=== PATIENT | female | born 1950 | race Caucasian/White ===

== ENCOUNTER → 2016-10-20 | Outpatient (CLI) | payer OTHER ==
[~2016-10-20] MED LIST: ACET-1311 PO; AMLO-110 PO; CLC100 PO; DRV100 PO; FERR1TAB61 PO; HYDC25 PO; LEVO75TA36 PO; LEVO88TA3 PO; LISI-461 PO; LOVA20TA4 PO; LSN20 PO; METF-384 PO; OXYC-57 PO; SIMV10TA2 PO
[2016-10-20 17:29] LABS: URINE APPEARANCE CLEAR (CLEAR); URINE BILIRUBIN NEG (NEG); URINE COLOR YELLOW; URINE EPITHELIAL CELL AUTO >30 /lpf (0-5); URINE NITRITE NEG (NEG); URINE PH 5.5 (4.5-7.5); URINE SPECIFIC GRAVITY 1.007 (1.000-1.030); UROBILINOGEN NEG (NEG)
[2016-10-20 17:40] LABS: MANUAL MICROSCOPIC REQUIRED? NO; REVIEW REQ? NO
[2016-10-20 18:05] LABS: BASO % 0.6 %; BASO ABS # 0.06 K/uL (0-0.2); COMPLETE YES; EOS % 1.3 %; HEMATOCRIT 31.3 % (37-47); IG% 0.1 %; LYMPH % 24.9 %; LYMPH ABS # 2.47 K/uL (1.2-3.4); MEAN CELL VOLUME 82.8 fL (80-100); MEAN CORPUSCULAR HEMOGLOBIN 26.5 pg (25-34); MEAN CORPUSCULAR HGB CONC 31.9 g/dl (32-36); MEAN PLATELET VOLUME 11.2 fL (7.4-10.4); NEUT % 66.1 %; PLATELET COUNT 308 K/uL (130-400); RED BLOOD COUNT 3.78 M/uL (4.2-5.4); WHITE BLOOD COUNT 9.91 K/uL (4.8-10.8)
[2016-10-20 18:38] LABS: ALT/SGPT 13 U/L (12-78); BLOOD UREA NITROGEN 14 mg/dl (7-18); BUN/CREATININE RATIO 13.7 (10-20); CALCIUM 9.5 mg/dl (8.5-10.1); CARBON DIOXIDE 23 mmol/L (21-32); CHLORIDE 106 mmol/L (98-107); GLUCOSE 122 mg/dl (70-99); POTASSIUM 4.5 mmol/L (3.5-5.1); SODIUM 142 mmol/L (136-145)
[2016-10-20 18:48] LABS: ALB/GLOB RATIO 0.9 (0.9-2); ALKALINE PHOSPHATASE 85 U/L (45-117); AST/SGOT 10 U/L (15-37)
[2016-10-21 06:22] LABS: ESTIMATED AVERAGE GLUCOSE 160 mg/dl; HA1C FLAG Normal (Normal)
== END | disposition home or self-care (01) ==
LOC: C.LABBFT 12:11
PROVIDERS: ATTEND Internal Medicine
DX: E03.9 Hypothyroidism, unspecified (principal); E11.65 Type 2 diabetes mellitus with hyperglycemia; R79.9 Abnormal finding of blood chemistry, unspecified

== ENCOUNTER → 2016-10-25 | Outpatient (CLI) | payer OTHER | END | disposition home or self-care (01) | LOC: C.LABSPEC 10:30 | PROVIDERS: ATTEND Internal Medicine | DX: Z12.11 Encounter for screening for malignant neoplasm of colon (principal) ==

== ENCOUNTER → 2016-12-26 | Outpatient (CLI) | payer OTHER ==
[~2016-12-26] MED LIST changes: +OPTIRAY 320 IV PRN
--- NOTE | 2016-12-26 12:11 | DIAGNOSTIC IMAGING REPORT ---
CAROTID ARTERY ULTRASOUND CLINICAL HISTORY: Carotid bruit. COMPARISON STUDY: None. TECHNIQUE: Real-time, grayscale, and color Doppler sonography of the carotid and vertebral arteries was performed. Images were viewed in the transverse and longitudinal planes. FINDINGS: There is extensive atherosclerotic plaque. Velocity measurements are listed below. COMMON CAROTID PEAK SYSTOLIC VELOCITY (CM/S): RIGHT 60 LEFT 67 ICA PEAK SYSTOLIC VELOCITY (CM/S): RIGHT 445 LEFT 249 The systolic ratio between the right internal to common carotid artery is markedly elevated at 7.4. The systolic ratio between the left internal carotid artery to common carotid artery is elevated at 3.7. Antegrade flow is seen in the vertebral arteries. The external carotid arteries are patent. Blood pressure in the right arm measured 124/64. Blood pressure in the left arm measured 125/73. IMPRESSION: 1. Markedly elevated velocities within the proximal to mid right internal carotid artery suggestive of a severe stenosis. A CTA of the neck could be obtained for further evaluation. 2. Findings suggestive of greater than 70% stenosis of the proximal left internal carotid artery. Electronically signed by: Mahesh Grayson M.D. 12/26/2016 12:09 PM Dictated Date/Time: 12/26/2016 12:04 PM
--- NOTE | 2016-12-26 16:42 | DIAGNOSTIC IMAGING REPORT ---
CT ANGIOGRAM OF THE NECK CLINICAL HISTORY: Carotid stenosis. COMPARISON STUDY: Carotid artery ultrasound dated 12/26/2016. TECHNIQUE: Following the IV administration of 120 of Optiray 320, CT angiogram of the neck was performed from the aortic arch to the skull base. Images are reviewed in the axial, sagittal, and coronal planes. 3-D MIPS images are created and assessed. IV contrast was administered without complication. All measurements were calculated based on NASCET criteria. CT DOSE: 501.39 mGy.cm FINDINGS: Thoracic aorta: Visualized portions of the thoracic aorta are normal in caliber. The aortic arch demonstrates bovine variant anatomy. Subclavian arteries: Widely patent bilaterally. Right carotid arterial system: The right common carotid artery is widely patent. There is near complete occlusion on the trace flow identified within the proximal right internal carotid artery. This extends approximately 1 cm in length as seen on axial image #196. The remainder of the right internal carotid artery and the right external carotid artery are widely patent. Left carotid arterial system: The left common carotid artery is widely patent. There is approximately 70% stenosis identified in the proximal right internal carotid artery. The remainder of the right internal carotid artery and the right external carotid artery are widely patent. Vertebral arteries: The vertebral arteries are widely patent and codominant. Intracranial vasculature: Partially visualized intracranial vessels at the skull base appear clear. Jugular veins: Widely patent bilaterally. Brain parenchyma: The visualized brain parenchyma the skull base is within normal limits. Lung apices: Emphysema is noted in the upper lobes. Partially visualized upper lobe lung parenchyma is otherwise clear. Soft tissues: The visualized pharyngeal soft tissues are normal in appearance noting angiographic phase technique. The oropharyngeal airway appears widely patent. The salivary and thyroid glands are normal in appearance. No cervical lymphadenopathy is seen. Skeletal structures: The skeletal structures are osteopenic. The visualized calvarium at the skull base appears intact. There is multilevel cervical spondylosis. IMPRESSION: 1. There is near complete occlusion with only trace flow seen in the proximal right internal carotid artery. 2. There is approximately 70% stenosis of the proximal left internal carotid artery. 3. The vertebral arteries are widely patent. 4. Emphysema. Electronically signed by: Js Britt M.D. 12/26/2016 4:40 PM Dictated Date/Time: 12/26/2016 4:25 PM
== END | disposition home or self-care (01) ==
LOC: C.ULTR 11:08
PROVIDERS: ATTEND Physician Assistant Medical
DX: Z01.810 Encounter for preprocedural cardiovascular examination (principal); Z01.812 Encounter for preprocedural laboratory examination; I65.23 Occlusion and stenosis of bilateral carotid arteries; J43.9 Emphysema, unspecified; R94.31 Abnormal electrocardiogram [ECG] [EKG]

== ENCOUNTER → 2016-12-28 | Outpatient (CLI) | payer OTHER ==
[~2016-12-28] MED LIST changes: -DRV100 PO; -HYDC25 PO; -LEVO75TA36 PO; -LISI-461 PO; -OPTIRAY 320 IV PRN; -SIMV10TA2 PO
== END | disposition home or self-care (01) ==
LOC: C.LABBFT 14:13
PROVIDERS: ATTEND Physician Assistant Medical
DX: E11.65 Type 2 diabetes mellitus with hyperglycemia (principal)

== ENCOUNTER 2017-01-17 05:13 | Inpatient (IN) | payer OTHER ==
[2017-01-09 15:58] VITALS: BMI 41.0
[2017-01-17] VITALS (38 sets, daily range): BP systolic 94–159; BP diastolic 42–90; PULSE 49–85; TEMP 36.3–36.6; O2SAT 90–100; Ht 162.6 cm; Wt 113.0 kg
[~2017-01-17] VITALS: Ht 162.6 cm; Wt 113.0 kg
[~2017-01-17 05:13] MED LIST changes: -ACET-1311 PO; -CLC100 PO; -OXYC-57 PO
--- NOTE | 2017-01-17 05:54 | History and Physical ---
History & Physical Date of Service January 17, 2017. History & Physical CC: Right internal carotid artery stenosis HPI: Mrs. Douglas is a 66-year-old female in her usual health was found to have a colon cancer. She was to undergo a colectomy when she was found to have a carotid bruit. Her CTA showed a severe pre-occlusive lesion of her right internal carotid artery approximately 1 cm above the bifurcation. She is asymptomatic from carotid disease at this time. She also denies any heart problems. She also denies any claudication of her lower extremities. ALLERGIES: POSITIVE FOR PENICILLIN. MEDICATIONS: Amlodipine, iron, levothyroxine, lisinopril, lovastatin, and metformin. PAST MEDICAL HISTORY: Positive for high blood pressure, diabetes, and cancer, and we found carotid stenosis. PAST SURGICAL HISTORY: Include cholecystectomy, stomach surgery, knees and back surgery in the past. FAMILY HISTORY: Positive for heart disease, hypertension, diabetes, cancer and stroke. SOCIAL HISTORY: She drinks occasionally but not often. She has never smoked. REVIEW OF SYSTEMS: A 10-review of systems review was obtained. Only positive findings are heartburn and occasional blood in stool. PHYSICAL EXAMINATION: The patient is awake, oriented x3. She is in no apparent distress. She is mildly obese. Her blood pressure is 132/64 in the right, 130/70 in the left arm. Head and neck within normal limits. There is a right carotid bruit. The lungs are clear. Heart, regular rhythm. Abdominal exam is benign. Vascular exam: Radials, carotids, supratemporal arteries +2 bilaterally. Femorals are +2 bilaterally. Neurologic exam grossly intact. CT again shows a severe preocclusive right internal carotid artery stenosis. IMPRESSION: Right internal carotid artery stenosis. Colon cancer. PLAN AND RECOMMENDATIONS: Patient is admitted for a right carotid endarterectomy. I have discussed the risks options and benefits of the procedure with the patient. The patient understands the risks options and benefits and agrees to the procedure.
[2017-01-17] MEDS ORDERED: LACTATED RINGER'S 1000ML 1,000 ML IV SCH ×2 (06:00)
[2017-01-17] MEDS ORDERED: CLINDAMYCIN 600 MG/54 ML D5W IV SCH (06:00)
[2017-01-17] MEDS ORDERED: FENTANYL CITRATE INJ 50 MCG/1 ML 2 ML VIAL ONE ×2 (06:39→08:15)
[2017-01-17] MEDS ORDERED: MIDAZOLAM HCL 1 MG/ML 2ML VIAL ONE (06:39)
--- NOTE | 2017-01-17 07:01 | History & Physical Bridge Note ---
H&P Re-Evaluation Bridge Note: I have examined the patient, reviewed the History & Physical and in the interval since the performance of the History & Physical I have noted the following changes of clinical significance: No changes noted
[2017-01-17] MEDS ORDERED: THROMBIN FOR SOLN 20000 UNIT KIT ONE (07:07)
[2017-01-17] MEDS ORDERED: GELATIN SPONGE 12-7MM ONE ×2 (07:07→09:58)
[2017-01-17] MEDS ORDERED: BUPIVACAINE/EPINEPHRINE 0.5% MPF 1:200,000 30 ML VIAL ONE (07:07)
[2017-01-17] MEDS ORDERED: CEFAZOLIN SOD 1 GM VIAL ONE (07:08)
[2017-01-17] MEDS ORDERED: LIDOCAINE HCL 1% 20 ML VIAL ONE (07:08)
[2017-01-17] MEDS: HEPARIN SOD (PORCINE) 1000 UNIT/ML 10 ML VIAL ONE ×2 (08:25→09:38)
[2017-01-17] MEDS ORDERED: DEXAMETHASONE SOD INJ 4 MG/ML VIAL ONE (09:10)
[2017-01-17] MEDS ORDERED: EpHEDrine SULFATE 50MG/5ML SYR ONE (09:10)
[2017-01-17] MEDS ORDERED: NEOSTIGMINE METHYLSULFATE 5 MG/5 ML SYR ONE (09:10)
[2017-01-17] MEDS ORDERED: HEPARIN SOD (PORCINE) 1000 UNIT/ML 10 ML VIAL ONE (09:10)
[2017-01-17] MEDS ORDERED: PROPOFOL IV EMULSION 10 MG/ML 20 ML VIAL IV ONE (09:10)
[2017-01-17] MEDS ORDERED: CISATRACURIUM BESYLATE IV SOLN 2 MG/ML 10 ML VIAL ONE (09:10)
[2017-01-17] MEDS ORDERED: GLYCOPYRROLATE INJ 0.2 MG/ML VIAL ONE (09:10)
[2017-01-17] MEDS ORDERED: LIDOCAINE HCL 2% 2 ML VIAL (20MG/ML) ONE (09:10)
[2017-01-17] MEDS ORDERED: ONDANSETRON INJ 2 MG/ML 2 ML VIAL ONE ×2 (09:10→13:34)
[2017-01-17] MEDS ORDERED: PHENYLEPHRINE HCL INJ 10 MG/ML VIAL ONE (09:11)
[2017-01-17] MEDS ORDERED: NITROGLYCERIN/D5W 100 MCG/ML 250 ML IV PRN (09:37)
[2017-01-17] MEDS ORDERED: PHENYLEPHRINE HCL INJ 20 MG in DEXTROSE 5% 500ML 500 ML IV PRN (09:37)
[2017-01-17] MEDS ORDERED: SODIUM NITROPRUSSIDE SOLN INJ 50 MG in DEXTROSE 5% 500ML 500 ML IV PRN (09:37)
--- NOTE | 2017-01-17 09:37 | [facility] Post Operative Brief Note ---
Immediate Operative Summary Operative Date January 17, 2017. Pre-Operative Diagnosis Internal Right Carotid Artery Stenosis Post-Operative Diagnosis Internal Right Carotid Artery Stenosis Procedure(s) Performed Right Carotid Endarterectomy with patch Surgeon Dr Valdez Morley Assembler Brazer Surgeon(s) Kristel Thurston PA-C, Fabiola Wang-Fellow Estimated Blood Loss 180ml Findings severe stenosis of right ica just beyond the origin Specimens A: Right Carotid Plaque Anesthesia Gen Complication(s) None Disposition Recovery Room / PACU
[2017-01-17] MEDS ORDERED: DEXTROSE 50% 50 ML SYR IV PRN (09:45)
[2017-01-17] MEDS ORDERED: GLUCOSE 10 TABS/TUBE PO PRN (09:45)
[2017-01-17] MEDS ORDERED: METOPROLOL TARTRATE 1 MG/ML VIAL IV PRN (09:45)
[2017-01-17] MEDS ORDERED: GLUCOSE 40% GEL 15 GM TUBE PO PRN (09:45)
[2017-01-17] MEDS ORDERED: GLUCAGON FOR INJ 1 MG VIAL SQ PRN (09:45)
[2017-01-17] MEDS ORDERED: SURGICEL ABSORB HEMOSTAT 2IN X 14IN TOP ONE (09:46)
[2017-01-17] MEDS ORDERED: NITROGLYCERIN/D5W 100 MCG/ML BTL ONE (10:04)
[2017-01-17] MEDS ORDERED: NALOXONE HCL 0.4 MG/1 ML VIAL/CARP IV PRN (11:00)
[2017-01-17] MEDS ORDERED: LABETALOL HCL IV 5 MG/ML 20ML IV PRN (11:00)
[2017-01-17] MEDS ORDERED: ONDANSETRON INJ 2 MG/ML 2 ML VIAL IV PRN (11:00)
[2017-01-17] MEDS ORDERED: PROMETHAZINE HCL INJ 12.5 MG in SODIUM CHLORIDE 0.9% 50ML 50 ML IV PRN (11:00)
[2017-01-17] MEDS ORDERED: FLUMAZENIL 0.1 MG/1 ML 10 ML VIAL IV PRN (11:00)
[2017-01-17] MEDS ORDERED: FENTANYL CITRATE INJ 50 MCG/1 ML 2 ML VIAL IV PRN (11:00)
[2017-01-17] MEDS ORDERED: ATROPINE SULFATE 0.1 MG/ML 5ML SYR IV PRN (11:00)
[2017-01-17] MEDS ORDERED: EpHEDrine SULFATE INJ 50 MG/ML AMP IV PRN (11:00)
--- NOTE | 2017-01-17 11:15 | Anesthesiology Progress Note ---
Anesthesia Post Op Note Date & Time January 17, 2017 at 11:15 Vital Signs Pain Intensity: 0 Vital Signs Past 12 Hours Date Time Temp Pulse Resp B/P Pulse Ox O2 Delivery O2 Flow Rate FiO2 01/17/17 11:10 66 16 108/57 95 Nasal Cannula 3 01/17/17 11:00 70 16 112/56 100 Mask 10 01/17/17 10:50 71 16 120/59 99 Mask 10 01/17/17 10:44 36.8 73 16 130/63 97 Mask 10 01/17/17 05:50 36.4 85 20 159/90 98 Room Air Notes Mental Status: alert / awake / arousable, participated in evaluation Pt Amnestic to Procedure: Yes Nausea / Vomiting: adequately controlled Pain: adequately controlled Airway Patency, RR, SpO2: stable & adequate BP & HR: stable & adequate Hydration State: stable & adequate Anesthetic Complications: no major complications apparent
[2017-01-17] MEDS: OXYCODONE/ACETAMINOPHEN 5-325 TAB PO PRN ×2 (12:11→23:12)
[2017-01-17 15:04] LABS: HEMATOCRIT 25.1 % (37-47); MEAN CORPUSCULAR HEMOGLOBIN 26.1 pg (25-34); MEAN CORPUSCULAR HGB CONC 32.3 g/dl (32-36); MEAN PLATELET VOLUME 9.9 fL (7.4-10.4); PLATELET COUNT 265 K/uL (130-400); WHITE BLOOD COUNT 10.57 K/uL (4.8-10.8)
[2017-01-17 15:20] LABS: PARTIAL THROMBOPLASTIN RATIO 0.9; PROTHROMBIN TIME (PATIENT) 10.6 SECONDS (9.0-12.0)
[2017-01-17 15:23] LABS: CREATININE 1.2 mg/dl (0.60-1.20)
[2017-01-17] MEDS: D5W AND 1/2NSS 1,000 ML IV SCH ×2 (15:40→23:11)
[2017-01-17] MEDS: CLINDAMYCIN IV 600 MG in DEXTROSE 5% ADD-VANTAGE 50ML 50 ML IV SCH ×2 (15:40→23:12)
--- NOTE | 2017-01-17 16:35 | CRITICAL CARE CONSULTATION ---
DATE OF CONSULTATION: 01/17/2017 CHIEF COMPLAINT: Nausea and vomiting. HISTORY OF PRESENT ILLNESS: The patient is a 66-year-old woman who underwent colonoscopy secondary to guaiac positive stool and according to her family, was found to have a colon cancer. I do not see any records in [facility] to give more details. She was seen for her preoperative clearance and workup and found to have a right carotid bruit. She underwent a carotid artery ultrasound on December 26 showing elevated velocities within the proximal to mid right internal carotid artery suggestive of severe stenosis. She then underwent CT angiogram of the neck, showing near complete occlusion with only trace flow seen in the proximal right internal carotid artery. She was asymptomatic and was seen by Dr. Morley for right carotid endarterectomy. She underwent her surgery today and was brought to the intensive care unit from the PACU. There was no communication from the surgery service or anesthesia service regarding this patient. It appears that she had no intraoperative complications and received 600 mL of lactated Ringer's. Estimated blood loss was 180 mL and no urine output. Postop, she is nauseated after eating a full lung and she vomited in my presence. She denies pain. She denies numbness, tingling, weakness, difficulty speaking or swallowing. PAST MEDICAL HISTORY: Gout, diabetes mellitus type 2, gastroesophageal reflux disease, hypercholesterolemia, hypertension, hypothyroidism, migraine headache, urinary tract infection and postmenopausal bleeding. PAST SURGICAL HISTORY: Status post cholecystectomy, lumbar vertebral fusion, small bowel resection, bilateral total knee arthroplasties and tubal ligation. ALLERGIES: PENICILLIN, LATEX, MAGNESIUM, OXYCODONE AND ZINC. OUTPATIENT MEDICATIONS: Amlodipine 5 mg daily, ferrous sulfate 65 mg in the morning, levothyroxine 1 tab p.o. q.a.m., lisinopril 1 tab daily, lovastatin 20 mg every evening, and metformin 1 gram b.i.d. SOCIAL HISTORY: The patient is and her 4 years ago. She drinks alcohol socially and has never smoked. FAMILY HISTORY: Significant for heart disease, hypertension, diabetes mellitus, and cancer. REVIEW OF SYSTEMS: She has felt weak and tired. She denies any numbness, tingling, weakness, falls, syncope, or presyncope. Additional review of systems are negative or noncontributory in 12-point system. PHYSICAL EXAMINATION: GENERAL: This is an obese woman, sitting in bed in no distress. VITAL SIGNS: Temperature is pending, heart rate 84, respiratory rate 22, blood pressure 136/77, and oxygen saturation 99% on 3 liters nasal cannula. HEENT: Pupils are equally round and reactive to light. There is no scleral icterus. Oral mucosa is moist. Tongue is midline. There is no facial droop. NECK: Shows the carotid endarterectomy incision on the right to be well approximated and without any drainage. LUNGS: Have decreased breath sounds in the bases. No rales, rhonchi or wheezes. HEART: Regular rate and rhythm. ABDOMEN: Limited due to the patient's nausea and her positioning in the bed. It is somewhat firm, but nontender and nondistended. EXTREMITIES: Warm. NEUROLOGIC: Pupils are equally round and reactive to light. No facial droop. Tongue midline. Sensation of the face is grossly intact and equal bilaterally. Voice is within normal limits. UPPER EXTREMITIES: Strength is equal bilaterally. LABORATORY DATA: White blood cell count 10.57, hemoglobin 8.1, hematocrit 25.8, and platelets 265. PT, PTT, and INR within normal limits. Blood sugar 260. Creatinine pending. MEDICATIONS: Postoperatively, Norvasc 5 mg daily, clindamycin q. 8 hours, Lovenox 30 mg subQ q. 12 hours, Fentanyl p.r.n., ferrous sulfate daily, insulin sliding scale, labetalol as needed, lactated Ringer's 80 mL per hour, Synthroid 88 mcg daily, lisinopril 20 mg daily, lovastatin 20 mg q.p.m., Lopressor 5 mg p.r.n., Zofran, p.r.n. nitroglycerin infusion, oxycodone/acetaminophen, Shahid-Synephrine p.r.n., promethazine p.r.n. and Nipride p.r.n. IMPRESSION: 1. Status post right carotid endarterectomy, doing well. 2. Postoperative nausea and vomiting, which may be secondary to lingering anesthesia. She also had a large lunch soon after she arrived in the intensive care unit. 3. History of hypertension, presently well controlled. She has a myriad of p.r.n. medications on her MAR should she become hypertensive. 4. Diabetes mellitus with hyperglycemia, she is on an insulin sliding scale. 5. Anemia without active signs of bleeding. Her preoperative hemoglobin was 9.2. Family tells me that she is anemic secondary to her colon cancer. 6. Colon cancer, waiting for hemicolectomy by Dr. Weathers. PLAN: 1. Follow blood pressure and treat if not within Dr. Morley's parameters. 2. Suggest Tylenol for pain. 3. Continue neurovascular checks. Please call me with any questions or concerns. Dr. Morley should be the first call on this patient. [facility]
[2017-01-17] MEDS: INSULIN HUMAN REGULAR SC SCH ×2 (16:48→20:42)
[2017-01-17] MEDS: ENOXAPARIN 30 MG/0.3 ML SYR SQ SCH (18:07)
[2017-01-17] MEDS ORDERED: NURSING DECISION MEDICATION ORDER SCH (19:45)
[2017-01-17] MEDS ORDERED: COUGH DROP (SUGAR FREE) LOZ 24 LOZ/1 BOX PO PRN (20:15)
[2017-01-17] MEDS: LOVASTATIN 20 MG TAB PO SCH (20:31)
[2017-01-17] MEDS: ONDANSETRON INJ 2 MG/ML 2 ML VIAL IV PRN (20:40)
[2017-01-18] VITALS (16 sets, daily range): BP systolic 96–143; BP diastolic 47–78; PULSE 44–64; TEMP 36.4–36.8; O2SAT 91–98
[2017-01-18] MEDS: D5W AND 1/2NSS 1,000 ML IV SCH ×2 (01:37→10:04)
[2017-01-18] MEDS: ENOXAPARIN 30 MG/0.3 ML SYR SQ SCH ×2 (05:46→19:33)
[2017-01-18] MEDS: LEVOTHYROXINE 88 MCG TAB PO SCH (05:46)
[2017-01-18] MEDS: OXYCODONE/ACETAMINOPHEN 5-325 TAB PO PRN ×4 (06:11→21:06)
[2017-01-18 06:18] LABS: HEMATOCRIT 29.6 % (37-47); MEAN CELL VOLUME 80.4 fL (80-100); MEAN CORPUSCULAR HGB CONC 31.1 g/dl (32-36); MEAN PLATELET VOLUME 9.9 fL (7.4-10.4); PLATELET COUNT 280 K/uL (130-400); RED BLOOD COUNT 3.68 M/uL (4.2-5.4); WHITE BLOOD COUNT 12.71 K/uL (4.8-10.8)
--- NOTE | 2017-01-18 07:42 | Anesthesiology Progress Note ---
Anesthesia Post Op Note Date & Time January 18, 2017 at 07:42 Vital Signs Pain Intensity: 2.0 Vital Signs Past 12 Hours Date Time Temp Pulse Resp B/P Pulse Ox O2 Delivery O2 Flow Rate FiO2 01/18/17 06:10 64 16 120/55 95 Room Air 01/18/17 04:00 97 Nasal Cannula 2.0 01/18/17 04:00 36.4 47 16 143/78 97 Nasal Cannula 2.0 01/18/17 02:00 53 14 100/47 95 01/18/17 00:00 94 Nasal Cannula 1.0 01/17/17 23:30 36.6 54 16 114/48 98 Room Air 127/61 01/17/17 22:15 49 14 105/45 100 Nasal Cannula 2.0 01/17/17 22:08 36.5 72 15 100/42 100 2.0 01/17/17 21:40 36.6 61 18 100/45 100 2.0 01/17/17 20:35 36.5 54 14 113/46 100 2.0 01/17/17 20:05 36.6 71 15 110/50 96 2.0 01/17/17 20:00 98 Nasal Cannula 2.0 01/17/17 19:50 36.5 61 16 117/55 99 Notes Mental Status: alert / awake / arousable, participated in evaluation Pt Amnestic to Procedure: Yes Nausea / Vomiting: adequately controlled Pain: adequately controlled Airway Patency, RR, SpO2: stable & adequate BP & HR: stable & adequate Hydration State: stable & adequate Anesthetic Complications: no major complications apparent
[2017-01-18] MEDS: FERROUS SULFATE 325 MG TAB PO SCH (07:59)
[2017-01-18] MEDS: LISINOPRIL 20 MG TAB PO SCH (07:59)
[2017-01-18] MEDS: AMLODIPINE BESYLATE 5 MG TAB PO SCH (07:59)
[2017-01-18] MEDS: INSULIN HUMAN REGULAR SC SCH ×4 (08:01→21:00)
--- NOTE | 2017-01-18 12:51 | Progress Note ---
Progress Note Date of Service: January 18, 2017. Subjective Patient feels weak and tired. Was nauseous yesterday Objective Vital Signs Vital Signs Past 12 Hours Date Time Temp Pulse Resp B/P Pulse Ox O2 Delivery O2 Flow Rate FiO2 01/18/17 10:15 48 16 113/54 96 Room Air 01/18/17 08:06 61 16 115/50 96 Room Air 01/18/17 08:00 Room Air 01/18/17 08:00 36.6 62 16 109/49 96 Room Air 01/18/17 07:30 57 14 124/61 98 Room Air 01/18/17 07:00 54 18 116/54 94 Room Air 01/18/17 06:10 64 16 120/55 95 Room Air 01/18/17 04:00 97 Nasal Cannula 2.0 01/18/17 04:00 36.4 47 16 143/78 97 Nasal Cannula 2.0 01/18/17 02:00 53 14 100/47 95 Exam Awake alert. VSS Incision dry and clean No neuro deficits. No swallowing difficulty Intake & Output 8-Hour Column 01/17/17 01/18/17 01/18/17 16:00 00:00 08:00 Intake Total 2094 ml 1526 ml 1094 ml Output Total 480 ml 950 ml 870 ml Balance 1614 ml 576 ml 224 ml 24-Hour Column 01/18/17 08:00 Intake Total 4714 ml Output Total 2300 ml Balance 2414 ml Laboratory and Microbiology Results Past 24 Hours Test 01/17/17 14:42 01/17/17 15:57 01/17/17 19:51 01/18/17 06:04 Range/Units White Blood Count 10.57 12.71 4.8-10.8 K/uL Red Blood Count 3.10 3.68 4.2-5.4 M/uL Hemoglobin 8.1 9.2 12.0-16.0 g/dL Hematocrit 25.1 29.6 37-47 % Mean Corpuscular Volume 81.0 80.4 80-100 fL Mean Corpuscular Hemoglobin 26.1 25.0 25-34 pg Mean Corpuscular Hemoglobin Concent 32.3 31.1 32-36 g/dl RDW Standard Deviation 44.2 42.3 36.4-46.3 fL RDW Coefficient of Variation 14.8 14.4 11.5-14.5 % Platelet Count 265 280 130-400 K/uL Mean Platelet Volume 9.9 9.9 7.4-10.4 fL Prothrombin Time 10.6 9.0-12.0 SECONDS Prothromb Time International Ratio 1.0 0.9-1.1 Activated Partial Thromboplast Time 22.6 21.0-31.0 SECONDS Partial Thromboplastin Ratio 0.9 Creatinine 1.20 0.60-1.20 mg/dl Est Creatinine Clear Calc Drug Dose 54.1 ml/min Estimated GFR () 53.8 Estimated GFR (Non- 46.4 Bedside Glucose 385 260 70-90 mg/dl Test 01/18/17 06:08 01/18/17 10:48 Range/Units Bedside Glucose 202 203 70-90 mg/dl Imp: Post right CEA Plan: Doing well with no neuro deficits. Will transfer to floor. Too tired from surgeryto be d/c today
[2017-01-18] MEDS: METFORMIN HCL 500 MG TAB PO SCH (19:34)
[2017-01-18] MEDS: LOVASTATIN 20 MG TAB PO SCH (21:06)
[2017-01-19] MEDS: OXYCODONE/ACETAMINOPHEN 5-325 TAB PO PRN (01:25)
[2017-01-19] MEDS: ENOXAPARIN 30 MG/0.3 ML SYR SQ SCH ×2 (05:31→18:27)
[2017-01-19] MEDS: LEVOTHYROXINE 88 MCG TAB PO SCH (05:31)
[2017-01-19] MEDS: ONDANSETRON INJ 2 MG/ML 2 ML VIAL IV PRN (05:35)
[2017-01-19 07:43] VITALS: BP 124/81; PULSE 64; TEMP 36.6; O2SAT 93
[2017-01-19] MEDS: METFORMIN HCL 500 MG TAB PO SCH ×2 (08:30→18:26)
[2017-01-19] MEDS: INSULIN HUMAN REGULAR SC SCH ×4 (08:45→21:00)
[2017-01-19] MEDS: FERROUS SULFATE 325 MG TAB PO SCH (08:53)
[2017-01-19] MEDS: LISINOPRIL 20 MG TAB PO SCH (08:55)
[2017-01-19] MEDS: AMLODIPINE BESYLATE 5 MG TAB PO SCH (08:56)
[2017-01-19] MEDS ORDERED: BISACODYL 10 MG SUPP PR STA (14:32)
[2017-01-19] MEDS ORDERED: DOCUSATE SODIUM 100 MG CAP PO ONE (14:32)
[2017-01-19] MEDS ORDERED: SODIUM CHLORIDE 0.9% 1000ML 1,000 ML IV SCH (14:45)
[2017-01-19] MEDS ORDERED: ONDANSETRON 4MG OD TAB PO PRN (14:45)
--- NOTE | 2017-01-19 14:45 | Progress Note ---
Progress Note Date of Service: January 19, 2017. Subjective 66 yo f with multiple medical problems, POD #2 after R CEA, seen in f/u today. Pt c/o nausea when she gets up to go to restroom. Denies nausea at rest, however, has not eaten any meals today. States is keeping down water. Denies abd pain. No BM yet, but is passing flatus. Last BM 3 days ago. Denies STEVEN, chest pain, SOB, other complaints. Pt declining IV zofran d/t "burning" when given. States fatigue has improved. Objective Vital Signs Vital Signs Past 12 Hours Date Time Temp Pulse Resp B/P Pulse Ox O2 Delivery O2 Flow Rate FiO2 01/19/17 08:30 Room Air 01/19/17 07:43 36.6 64 16 124/81 93 Room Air Exam CONST: A&O x4, NAD, obese, generally healthy appearing female NECK: incision C/D/I, mild local edema, tenderness, ecchymosis. Trachea midline CHEST: RRR lungs ctab ABD: soft, nontender, nondistended, + bs x 4 quad EXT: DEJESUS, NEURO: no focal deficits. Intake & Output 8-Hour Column 01/18/17 01/18/17 01/19/17 15:59 23:59 07:59 Intake Total 1200 ml Output Total 800 ml Balance 400 ml 24-Hour Column 01/19/17 07:59 Intake Total 1200 ml Output Total 800 ml Balance 400 ml Laboratory and Microbiology Results Past 24 Hours Test 01/18/17 17:11 01/18/17 20:37 01/19/17 08:37 Range/Units Bedside Glucose 164 157 134 70-90 mg/dl ASSESSMENT and PLAN: s/p R CEA Severe RICAS Nausea/vomiting Pt discussed with Peyman, recommends IV fluids, suppository. Will reevaluate in AM. Change IV zofran to ODT, add colace.
[2017-01-19] MEDS ORDERED: RANITIDINE HCL 150 MG TAB PO ONE (15:30)
[2017-01-19 16:02] VITALS: BP 105/73; PULSE 62; TEMP 36.7; O2SAT 92
[2017-01-19] MEDS ORDERED: NURSING VERBAL MED ORDER ONE (18:30)
[2017-01-19] MEDS: ACETAMINOPHEN 500 MG TAB PO PRN (19:11)
[2017-01-19] MEDS: LOVASTATIN 20 MG TAB PO SCH (21:22)
[2017-01-19] MEDS: DOCUSATE SODIUM 100 MG CAP PO SCH (21:23)
[2017-01-19 22:55] VITALS: BP 122/66; PULSE 63; TEMP 37.2; O2SAT 92
[2017-01-20] MEDS: ACETAMINOPHEN 500 MG TAB PO PRN (03:39)
[2017-01-20] MEDS: ENOXAPARIN 30 MG/0.3 ML SYR SQ SCH (05:38)
[2017-01-20] MEDS: LEVOTHYROXINE 88 MCG TAB PO SCH (05:38)
[2017-01-20 07:04] VITALS: BP 160/76; PULSE 61; TEMP 36.8; O2SAT 94
[2017-01-20 08:02] LABS: HEMATOCRIT 32.9 % (37-47); MEAN CELL VOLUME 82.3 fL (80-100); MEAN CORPUSCULAR HGB CONC 31.6 g/dl (32-36); MEAN PLATELET VOLUME 10.5 fL (7.4-10.4); PLATELET COUNT 305 K/uL (130-400); WHITE BLOOD COUNT 8.26 K/uL (4.8-10.8)
[2017-01-20 08:32] LABS: CREATININE 1.2 mg/dl (0.60-1.20)
[2017-01-20] MEDS ORDERED: RANITIDINE HCL 150 MG TAB PO SCH (09:00)
[2017-01-20] MEDS: FERROUS SULFATE 325 MG TAB PO SCH (09:12)
[2017-01-20] MEDS: AMLODIPINE BESYLATE 5 MG TAB PO SCH (09:12)
[2017-01-20] MEDS: LISINOPRIL 20 MG TAB PO SCH (09:12)
[2017-01-20] MEDS: DOCUSATE SODIUM 100 MG CAP PO SCH (09:13)
[2017-01-20] MEDS: METFORMIN HCL 500 MG TAB PO SCH (09:13)
[2017-01-20] MEDS: INSULIN HUMAN REGULAR SC SCH (09:18)
[2017-01-20] MEDS ORDERED: OXYC-57 PO (09:40)
[2017-01-20] MEDS ORDERED: CLC100 PO (09:40)
--- NOTE | 2017-01-20 09:43 | Discharge Instructions ---
Discharge Instructions Date of Service January 20, 2017. Admission Reason for Admission: Right Internal Carotid Artery Stenosis Discharge Discharge Diagnosis / Problem: s/p Right Carotid Endarterectomy Discharge Goals Goal(s): Therapeutic intervention Activity Recommendations Activity Limitations: per Instructions/Follow-up section No driving x 1 week. May shower. . Instructions / Follow-Up Instructions / Follow-Up SPECIAL CARE INSTRUCTIONS: Medications: * Continue to take Aspirin as directed. Incision Care: * You may shower, but do not rub incision. You may let the warm soapy water run over it. Be sure to dry the incision well after bathing. * Do not shave directly over the incision until it is healed. * DO NOT IMMERSE THE INCISION IN A TUB/POOL/etc. UNTIL HEALED. Restrictions: * Do not drive for at least one week or if you are still taking any narcotic pain medication. * Do not lift anything heavier than a gallon of milk for one week after going home. Possible Complications: * Numbness - It is normal to have some numbness around the incision. Numbness can extend beyond the incision to areas of the neck, ear and face. The numbness is due to bruising of nerves during the surgery and will gradually improve over a period of months. * Hoarseness/Difficulty Speaking and Swallowing - The bruising of nerves in the neck can also cause a hoarse voice, difficulty speaking or swallowing. This may improve over time, HOWEVER, if it continues for more than a few days please contact our office ([phone]). * Excessive Swelling - There will be some swelling immediately after surgery which usually resolves within one week. If you notice that the swelling is getting worse, notify your surgeon ([phone]). * Drainage/Bleeding - If there is any drainage or bleeding, it should be a very small amount (less than a teaspoon per day). If you have excessive bleeding or drainage from the incision, call your surgeon ([phone]) right away. ACTIVATION OF EMERGENCY MEDICAL SYSTEM: Call 911, immediately, if you experience any of the following: Warning Signs and Symptoms of Stroke: * Sudden numbness or weakness of the face, arm or leg, especially on one side of the body * Sudden confusion, trouble speaking or understanding * Sudden trouble seeing in one or both eyes * Sudden trouble walking, dizziness, loss of balance or coordination * Sudden severe headache with no cause Do not delay calling 911 if you experience any warning signs or symptoms of a stroke. Delay in seeking medical attention may affect what treatments can be given to you. Risk Factors for Stroke: You can reduce your chances of stroke by working with your medical provider to adopt a healthy lifestyle. Some specific ways to lower your chance of stroke are: * If you are a smoker, now is the time to stop smoking cigarettes * If you are diabetic, improve the control of your blood sugars * Avoid excessive amounts of alcohol * Control high blood pressure * Lose weight if you are overweight * Be sure to lead an active lifestyle * Eat a healthy diet low in salt, cholesterol and fat You should know about other risk factors for stroke that you are unable to control. These include: * Age 55 years or older * Male gender * Certain racial groups: , or / * Family History of Stroke, Mini stroke or Heart Attack * Sickle Cell Disease You will be receiving a call from the Vascular Surgery Nurse after you are discharged. FOLLOW UP VISIT: It is important for you to keep your follow up appointments with your medical provider. Keep any scheduled doctor appointments. Current Hospital Diet Patient's current hospital diet: AHA Diet (Heart Healthy), Diabetes Type 2 Diet Discharge Diet Recommended Diet: AHA Diet (Heart Healthy), Diabetes Type 2 Diet Procedures Procedures Performed: Right Carotid Endarterectomy with patch Pending Studies Studies pending at discharge: no Medical Emergencies . Who to Call and When: Medical Emergencies: If at any time you feel your situation is an emergency, please call 911 immediately. . Non-Emergent Contact Non-Emergency issues call your: Surgeon Call Non-Emergent contact if: your pain is not controlled, your pain is worsening, wound has increased redness, wound has increased pain . "Provider Documentation" section prepared by Kristel Thurston. . VTE Core Measure Inpt VTE Proph given/why not?: Enoxaparin (Lovenox) [place] Drug Monitoring Program Search Results: patient reviewed within database, no issues identified
--- NOTE | 2017-01-20 09:49 | Progress Note ---
Progress Note Date of Service: January 20, 2017. Subjective 66 yo f POD #3 after R CEA, seen in f/u today. Pt states feeling much improved. Had BM x3, nausea resolved. Ate breakfast this AM, appetite returning. Ambulating well. No new complaints. Objective Vital Signs Vital Signs Past 12 Hours Date Time Temp Pulse Resp B/P Pulse Ox O2 Delivery O2 Flow Rate FiO2 01/20/17 08:32 Room Air 01/20/17 07:04 36.8 61 16 160/76 94 Room Air 01/19/17 23:34 Room Air 01/19/17 22:55 37.2 63 16 122/66 92 Room Air Exam CONST: A&O x4, NAD, obese, generally healthy appearing female NECK: R side incision C/D/I. + local edema and tenderness. Minimal ecchymosis CHEST: RRR, lungs decreased but CTAB ABD: soft, nontender, + bs x 4 quad NEURO: DEJESUS, no focal deficits. Intake & Output 8-Hour Column 01/19/17 01/19/17 01/20/17 15:59 23:59 07:59 Intake Total 180 ml 515 ml 103 ml Output Total 300 ml Balance -120 ml 515 ml 103 ml 24-Hour Column 01/20/17 07:59 Intake Total 798 ml Output Total 300 ml Balance 498 ml Laboratory and Microbiology Results Past 24 Hours Test 01/19/17 12:14 01/19/17 17:14 01/19/17 20:41 01/20/17 07:28 Range/Units Bedside Glucose 141 152 124 70-90 mg/dl White Blood Count 8.26 4.8-10.8 K/uL Red Blood Count 4.00 4.2-5.4 M/uL Hemoglobin 10.4 12.0-16.0 g/dL Hematocrit 32.9 37-47 % Mean Corpuscular Volume 82.3 80-100 fL Mean Corpuscular Hemoglobin 26.0 25-34 pg Mean Corpuscular Hemoglobin Concent 31.6 32-36 g/dl RDW Standard Deviation 44.3 36.4-46.3 fL RDW Coefficient of Variation 14.8 11.5-14.5 % Platelet Count 305 130-400 K/uL Mean Platelet Volume 10.5 7.4-10.4 fL Creatinine 1.20 0.60-1.20 mg/dl Est Creatinine Clear Calc Drug Dose 55.3 ml/min Estimated GFR () 53.8 Estimated GFR (Non- 46.4 Test 01/20/17 08:05 Range/Units Bedside Glucose 137 70-90 mg/dl ASSESSMENT and PLAN: s/p R LIBIA BURNS Pt doing well post op. D/C home. Pt to call with any other concerns. WIll see in office in 2 weeks for reevaluation.
[2017-01-20 10:26] VITALS: BP 160/76; PULSE 61; TEMP 36.8; O2SAT 94
--- NOTE | 2017-01-24 13:54 | DISCHARGE SUMMARY ---
ADMISSION DIAGNOSIS: Severe right internal carotid artery stenosis. DISCHARGE DIAGNOSES: 1. Status post right carotid endarterectomy. 2. Severe right internal carotid artery stenosis. DISCHARGE CONDITION: Stable. CONSULTATIONS IN THE HOSPITAL: Included critical care immediately postop. PROCEDURES IN THE HOSPITAL: Included her right carotid endarterectomy which was performed on 01/17/2017 with an EBL of 180 mL and no other significant complications. HISTORY OF PRESENT ILLNESS: Ms. Douglas is a 66-year-old female who presented to our office for evaluation of a severe right internal carotid artery stenosis which was found on preoperative testing after a carotid bruit was discovered. She was undergoing preop testing in order to have a partial colectomy due to colon cancer. Imaging demonstrated an over 90% stenosis and a CTA confirmed this as a preocclusive lesion. She denied any symptoms related to it, but due to the severity of her stenosis and her significantly increased risk of CVA, she was recommended to undergo a carotid endarterectomy. The procedure, risks, benefits, alternatives were discussed at length with the patient, and she expressed understanding and agreement to proceed. HOSPITAL COURSE: The patient was admitted on 01/17/2017 after undergoing her right internal carotid artery endarterectomy. This was performed with an EBL of 180 mL and no significant complication. The patient did generally well postoperatively. Her vital signs remained essentially stable. She overall did require transfusion of 2 units, although she is chronically anemic to begin with. On postop day #1, she was complaining of severe fatigue and it was felt to be prudent to have her remain in the hospital for 1 more day. The following day, she was complaining of nausea and vomiting every time she got out of bed, although she denied any other complaints including abdominal pain, headache, dizziness, chest pain, shortness of breath or other complaints. At that point, she had been 3 days without a bowel movement as well. Her bowel sounds were normal and present, however and her belly was soft. After treatment with Zofran as well as a suppository and Colace, the patient had excellent results and resolution of her symptoms and on day 3 postop, she was doing well, taking p.o., ambulating without difficulty, and felt to be stable enough for discharge. PHYSICAL EXAMINATION: VITAL SIGNS: On day of discharge, her vital signs were as follows: Temperature of 36.8, pulse of 61, respiratory rate of 16, blood pressure 160/76 and pulse oximetry of 94% on room air. CONSTITUTIONAL: The patient is an obese, mildly chronically ill-appearing, middle-aged female, in no acute distress. She ambulated without assistance and is active, alert and oriented x4 with normal recent and remote memory. HEAD: Normocephalic and atraumatic. EYES: EOMI. ENT: Reveal no significant hearing loss, rhinorrhea or pharyngeal erythema. NECK: On the left side was supple, nontender. Her right-sided surgical incision is well approximated and healing appropriately. There is some mild local tenderness, ecchymosis and edema, although no large hematoma was noted. Her trachea remained midline throughout her stay. HEART: Demonstrated regular rate and rhythm. LUNGS: Clear but decreased bilaterally. ABDOMEN: Soft, nontender with normoactive bowel sounds in all 4 quadrants without guarding or rebound. EXTREMITIES: Her bilateral upper extremities demonstrate no cyanosis, edema, clubbing, varicosities or ulcers. Bilateral lower extremities demonstrate no cyanosis, edema, clubbing, varicosities or ulcers. NEUROLOGIC: The patient has no focal deficits. DIET UPON DISCHARGE: Should be a low-cholesterol AHA diet. MEDICATIONS UPON DISCHARGE: Were reconciled in the chart and are as per her discharge instructions with no significant changes noted aside from the addition of some mild pain medication. FOLLOWUP: Should be with Dr. Morley or his PA, Kristel Thurston, in the office within 2 weeks for reevaluation. She was advised to call the office with any questions or concerns.
--- NOTE | 2017-03-22 07:26 | [facility] Operative Report ---
Operative Report Operative Date 01/17/17. Pre-Operative Diagnosis Internal Right Carotid Artery Stenosis Post-Operative Diagnosis Internal Right Carotid Artery Stenosis Procedure(s) Performed Right Carotid Endarterectomy with patch Surgeon Dr Valdez Morley Condenser Tester Surgeon(s) Kristel Thurston PA-C, Fabiola Wang-Fellow Estimated Blood Loss 180ml Findings severe stenosis just beyond its origin Specimens A: Right Carotid Plaque Anesthesia Gen Complication(s) None Disposition Recovery Room / PACU Indications This is 67-year-old female who has a colon lesion. She was found to have severe stenosis of her right internal carotid artery. Endarterectomy was recommended. Her surgeon would like this done prior to her colon resection. She understood the risks options and benefits and agrees to go ahead with this procedure. Description of Procedure Patient was taken to the operating room placed supine position. After eliu right -side of the neck was prepped and draped in the usual fashion a longitudinal neck incision was then made medial to the sternocleidomastoid muscle. This was carried down through the platysmal layer. The facial vein was identified ligated and divided. Dissection was carried down and the common carotid artery identified. This was dissected upward to the bifurcation. The internal and external carotid arteries were then isolated. The internal carotid was isolated beyond the lesion. The hypoglossal nerve was seen as well as the ansa and both were preserved. At that point the patient was adequately heparinized. After adequate heparinization was accomplished, the internal, external, and common carotid arteries were clamped. A longitudinal arteriotomy was started on the common carotid artery and extended upward along the internal carotid artery. This was carried up to beyond the lesion. A Doppler shunt was then placed in the internal followed by the common carotid artery and held in place with Sanchez clamps. There was flow noted through the shunt at that time. The flow surface of the internal carotid showed a severe stenosis just beyond its origin. The lumen of the lesion was preocclusive. Using a spatula the endarterectomy was started on the common carotid artery in the appropriate plane. Dissection was carried upward. The external carotid was everted and endarterectomized. The endarterectomy was then carried upward along the internal carotid origin and a nice feathered breakoff point was accomplished in the internal carotid artery beyond the area of narrowing. Under loop magnification, all loose debris and flaps were removed. Irrigation was used to inspect the flow surface. After no further loose pieces of plaque were noted, the arteriotomy was closed using an AcuSeal patch. This was done in the usual vascular fashion using a CV 6 gortex suture. Prior to completing the closure this shunt was removed. Back bleeding and fore bleeding was allowed to occur. The flow surface was then irrigated with heparinized saline. The final few sutures were then placed and securely tied. Clamps removed from the external and common carotid arteries followed by the internal carotid artery. Good flow was seen and there is no palpable thrill noted in the internal carotid artery. Adequate hemostasis was then obtained of the suture line and the wound. After adequate hemostasis was noted, the wound was then closed in the usual fashion using a running 3-0 Vicryl suture for the platysmal layer and a running 4-0 subcuticular Vicryl suture for the skin edges. Dermabond was used for dressing. The patient left the operating room in good condition and tolerated the procedure well. She had no neurological deficits at the end of the procedure. Kristel Thurston Pac assisted due to lack of resident availability and was necessary for prepping, draping, retraction, wound closure defects, subQ and skin closure and was necessary for the case. I attest to the content of the Intraoperative Record and any orders documented therein. Any exceptions are noted below.
== END 2017-01-20 11:21 | disposition home or self-care (01) | DRG 38 ==
LOC: ENRESERVTM → ENRESERVDT → C.ACU 05:13 → C.MSICU 05:45 → C.MSW 01-18 15:02
PROVIDERS: ADMIT Surgery Vascular Surgery; ATTEND Surgery Vascular Surgery
PROC: 03CK0ZZ Extirpation of Matter from Right Internal Carotid Artery, Open Approach (ICD-10-PCS; principal; 2017-01-17 07:30)
PROC: 03UK0JZ Supplement Right Internal Carotid Artery with Synthetic Substitute, Open Approach (ICD-10-PCS; principal; 2017-01-17 07:30)
DX: I65.21 Occlusion and stenosis of right carotid artery (principal); C18.9 Malignant neoplasm of colon, unspecified; Z68.41 Body mass index [BMI] 40.0-44.9, adult; M10.9 Gout, unspecified; E03.9 Hypothyroidism, unspecified; G43.909 Migraine, unspecified, not intractable, without status migrainosus; E66.9 Obesity, unspecified; I10 Essential (primary) hypertension; E11.65 Type 2 diabetes mellitus with hyperglycemia; E78.00 Pure hypercholesterolemia, unspecified; Z88.0 Allergy status to penicillin; Z79.899 Other long term (current) drug therapy; D63.0 Anemia in neoplastic disease; R11.2 Nausea with vomiting, unspecified; K21.9 Gastro-esophageal reflux disease without esophagitis; Z88.8 Allergy status to other drugs, medicaments and biological substances; Z88.5 Allergy status to narcotic agent; Z91.040 Latex allergy status; Z87.440 Personal history of urinary (tract) infections; Z96.653 Presence of artificial knee joint, bilateral; Z98.51 Tubal ligation status; Z98.1 Arthrodesis status; Z90.49 Acquired absence of other specified parts of digestive tract; Z82.49 Family history of ischemic heart disease and other diseases of the circulatory system; Z83.3 Family history of diabetes mellitus; Z80.9 Family history of malignant neoplasm, unspecified; Z82.3 Family history of stroke

== ENCOUNTER 2017-01-31 08:52 | Inpatient (IN) | payer OTHER ==
[2016-12-26 14:43] VITALS: BMI 41.0
--- NOTE | 2016-12-26 15:38 | PAT Medication Instructions ---
Service Date Dec 26, 2016. Current Home Medication List Amlodipine (Norvasc), 5 MG PO QAM Ferrous Sulfate (Iron), 65 MG PO QAM Levothyroxine Sodium (Levothyroxine Sodium), 1 TAB PO QAM Lisinopril (Lisinopril), 1 TAB PO QAM Lovastatin (Mevacor), 20 MG PO QPM Metformin Hcl (Glucophage), 1,000 MG PO BID Medication Instructions For Your Scheduled Surgery - Hold the following medications 48 hours prior to surgery: Metformin Hcl (Glucophage), 1,000 MG PO BID - Hold the following medications the morning of surgery: Lisinopril (Lisinopril), 1 TAB PO QAM Ferrous Sulfate (Iron), 65 MG PO QAM - Take the following medications the morning of surgery with a sip of water: Levothyroxine Sodium (Levothyroxine Sodium), 1 TAB PO QAM Amlodipine (Norvasc), 5 MG PO QAM - Take the following medications as scheduled the night before surgery: Lovastatin (Mevacor), 20 MG PO QPM If you have any questions please call us at [phone] or [phone] ( Stephanie) or [phone]
[2016-12-26 16:15] LABS: BASO % 0.6 %; BASO ABS # 0.05 K/uL (0-0.2); COMPLETE YES; EOS % 1.2 %; HEMATOCRIT 29.6 % (37-47); IG% 0.1 %; LYMPH % 26.5 %; LYMPH ABS # 2.14 K/uL (1.2-3.4); MEAN CELL VOLUME 83.1 fL (80-100); MEAN CORPUSCULAR HEMOGLOBIN 25.8 pg (25-34); MEAN CORPUSCULAR HGB CONC 31.1 g/dl (32-36); MEAN PLATELET VOLUME 10.6 fL (7.4-10.4); MONO % 6.9 %; NEUT % 64.7 %; PLATELET COUNT 329 K/uL (130-400); RED BLOOD COUNT 3.56 M/uL (4.2-5.4); WHITE BLOOD COUNT 8.07 K/uL (4.8-10.8)
[~2017-01-31] VITALS: Ht 162.6 cm; Wt 108.8 kg
[2017-01-31] VITALS (7 sets, daily range): BP systolic 119–163; BP diastolic 69–95; PULSE 71–83; TEMP 36.3–36.8; O2SAT 95–99; Ht 162.6 cm; Wt 108.8 kg
[~2017-01-31 08:52] MED LIST changes: +ATROPINE SULFATE 0.1 MG/ML 5ML SYR IV PRN; +CIPROFLOXACIN / D5W 400 MG IV SCH; +CLC100 PO; +EpHEDrine SULFATE INJ 50 MG/ML AMP IV PRN; +FENTANYL CITRATE INJ 50 MCG/1 ML 2 ML VIAL IV PRN; +HYDROmorphone INJ 1 MG/ML SYR IV PRN; +LABETALOL HCL IV 5 MG/ML 20ML IV PRN; +LACTATED RINGER'S 1000ML 1,000 ML IV SCH; +MEPERIDINE HCL 25 MG/ML CARP IV PRN; +METRONIDAZOLE 500MG / NSS IV SCH; +ONDANSETRON INJ 2 MG/ML 2 ML VIAL IV PRN; +OXYC-57 PO
[2017-01-31] MEDS ORDERED: ACET-1311 PO (09:20)
[2017-01-31] MEDS ORDERED: CIPROFLOXACIN 400MG / 200ML D5W IV STA (10:40)
[2017-01-31] MEDS ORDERED: METRONIDAZOLE 500MG / 100ML NSS IV STA (10:40)
[2017-01-31] MEDS ORDERED: BACITRACIN OINT 15 GM TUBE ONE (10:44)
[2017-01-31] MEDS ORDERED: LIDOCAINE HCL 1% 20 ML VIAL ONE (10:44)
[2017-01-31] MEDS ORDERED: BUPIVACAINE 0.5 % 5 MG/1 ML MPF 30ML VIAL ONE (10:44)
[2017-01-31] MEDS ORDERED: MoRPHine SULFATE PF 1 MG/ML 10 ML AMP/VIAL ONE (11:41)
[2017-01-31] MEDS ORDERED: FENTANYL CITRATE INJ 50 MCG/1 ML 2 ML VIAL ONE ×3 (11:41→14:40)
[2017-01-31] MEDS ORDERED: EpHEDrine SULFATE 50MG/5ML SYR ONE (11:58)
[2017-01-31] MEDS ORDERED: PROPOFOL IV EMULSION 10 MG/ML 20 ML VIAL IV ONE (11:59)
[2017-01-31] MEDS ORDERED: LARYING-O-JET KIT (LTA) EXT ONE ×2 (11:59)
[2017-01-31] MEDS ORDERED: NEOSTIGMINE METHYLSULFATE 5 MG/5 ML SYR ONE (11:59)
[2017-01-31] MEDS ORDERED: LIDOCAINE HCL 2% 2 ML VIAL (20MG/ML) ONE (11:59)
[2017-01-31] MEDS ORDERED: LABETALOL HCL IV 5 MG/ML 20ML IV ONE (11:59)
[2017-01-31] MEDS ORDERED: GLYCOPYRROLATE INJ 0.2 MG/ML VIAL ONE (11:59)
[2017-01-31] MEDS ORDERED: ROCURONIUM BROMIDE 10 MG/ML 5 ML VIAL ONE (11:59)
[2017-01-31] MEDS ORDERED: ONDANSETRON INJ 2 MG/ML 2 ML VIAL ONE (11:59)
--- NOTE | 2017-01-31 14:38 | [facility] Post Operative Brief Note ---
Immediate Operative Summary Operative Date January 31, 2017. Pre-Operative Diagnosis COLON CANCER Post-Operative Diagnosis SAME Procedure(s) Performed Right Hemicolectomy Surgeon Dr. Weathers [employer] Programs Director Surgeon(s) Leonor Garner PA-C Estimated Blood Loss 30 ML Findings ascending colon cancer, invasived peritoneum Fluids (cc crystalloids) 1600ml Specimens A. Right colon Cancer Drains none Anesthesia general Complication(s) None Disposition Recovery Room / PACU
--- NOTE | 2017-01-31 15:32 | Anesthesiology Progress Note ---
Anesthesia Post Op Note Date & Time January 31, 2017 at 15:31 Vital Signs Pain Intensity: 4 Vital Signs Past 12 Hours Date Time Temp Pulse Resp B/P Pulse Ox O2 Delivery O2 Flow Rate FiO2 01/31/17 15:15 36.0 67 18 128/74 96 Nasal Cannula 3 01/31/17 15:05 36.0 68 18 137/83 94 Nasal Cannula 3 01/31/17 14:55 67 18 123/78 94 Nasal Cannula 3 01/31/17 14:45 65 18 139/72 97 Mask 10 01/31/17 14:35 61 18 123/78 98 Mask 10 01/31/17 14:29 36.0 60 18 122/64 98 Mask 10 01/31/17 09:20 36.8 83 18 163/95 97 Room Air Notes Mental Status: alert / awake / arousable, participated in evaluation Pt Amnestic to Procedure: Yes Nausea / Vomiting: adequately controlled Pain: adequately controlled Airway Patency, RR, SpO2: stable & adequate BP & HR: stable & adequate Hydration State: stable & adequate Anesthetic Complications: no major complications apparent
--- NOTE | 2017-01-31 15:42 | OPERATIVE REPORT ---
DATE OF OPERATION: 01/31/2017 PREOPERATIVE DIAGNOSIS: Right colon cancer. POSTOPERATIVE DIAGNOSIS: Same. OPERATION: Resection right hemicolectomy. SURGEON: Dr. Morena Weathers. DRAPERY SEWER HAND: Leonor Garner PA-C. ANESTHESIA: General. ESTIMATED BLOOD LOSS: About 30 mL. FINDINGS: Ascending colon invasive peritoneum. COMPLICATIONS: None. INDICATIONS FOR THE PROCEDURE: This is a 66-year-old female who diagnosed right colon cancer by colonoscopy and the patient will be required to do right hemicolectomy and possible stoma. I did talk to the patient about the benefit and risk, alternate procedure. I indicated the risks may include but not limited such as bleeding, infection, anastomosis leak, abscess, sepsis, myocardial infarction, DVT, stroke, even , incisional hernia. The patient understands. She signed informed consent and I answered all questions. DETAILS OF PROCEDURE: We brought the patient to the OR, put the patient in the supine position. The patient received SCD on bilateral legs to prevent DVT. Also, the patient received 400 mg Cipro and 500 mg of Flagyl IV for prophylactic antibiotic. The patient received general anesthesia without difficulty. The patient also received Gonzalez catheter insertion. The abdomen was prepped and draped in routine sterile fashion. After time out, I made a midline incision above and below the umbilical, opened fascia and opened peritoneum under direct vision. There was some tension intra-abdominal and we did lysis of adhesion and then we did explore the abdomen showing normal finding on the liver, diaphragm, peritoneum and the pelvic area. No tumor found; however, we found the patient had the ascending colon near the cecum and colon tumor size about 4 x 5 cm and also the colon cancer invaded the lateral peritoneum. Also, we see some tattoo near the tumor and then we decided to do the right hemicolectomy. I mobilized the tumor and take partial peritoneum in order to remove the tumor. We mobilized the lateral peritoneum, right side colon and hepatic structure. Once mobilized the colon and I used 4-5 vascular staple transection the mesentery near the right colon artery and ileocolic artery and the right branch of the medial colon artery. Then we prepared anastomosis. We used about 10 cm from the terminal ileum to the transverse colon, then we made 1 small hole in the small bowel and another hole in the large bowel colon, passed 18 mm Endo-SHIRA staple, created the [id number] anastomosis then I used another 80 mm Endo-SHIRA staple to transection the small bowel and large bowel and closed the opening. At this moment, all vessels taken down. Again right colonic artery taken down high ligation. We take down all the omental. We removed the specimen. We closed the defect in the mesentery with 3-0 Vicryl. We rechecked, no active bleeding and anastomosis is nice, no tension. Then I used 3-0 Vicryl to reinforce anastomosis small bowel to large bowel on each site. Rechecked no active bleeding, no leak and then we decided to close the abdomen. Used #1 PDS to close fascia continuous running, closed the subcutaneous layer by using 2-0 Vicryl, closed skin by using staple. We put the dressing on. The patient tolerated the procedure well. All instrument, needle and sponge count correct x2 at the end of case. The patient transferred to recovery room in stable condition and the specimen sent to pathology. After the procedure, I did talk to the patient's family member about OR finding and procedure we did, they understand. I attest to the content of the Intraoperative Record and any orders documented therein. Any exceptions are noted below. ZANDRA
[2017-01-31] MEDS: ONDANSETRON INJ 2 MG/ML 2 ML VIAL IV PRN (16:22)
[2017-01-31] MEDS ORDERED: D5W AND 1/2NSS + 20MEQ KCL 1,000 ML IV SCH (16:30)
[2017-01-31] MEDS: HYDROmorphone INJ 1 MG/ML SYR IV PRN ×2 (17:33→22:06)
[2017-01-31] MEDS: METRONIDAZOLE / NSS 500 MG in PREMIXED NSS 100 ML IV SCH (19:30)
[2017-01-31] MEDS: CIPROFLOXACIN / D5W 400 MG in PREMIXED IN D5W 200 ML IV SCH (22:12)
[2017-01-31] MEDS ORDERED: NURSING VERBAL MED ORDER ONE (23:00)
[2017-01-31] MEDS ORDERED: PHARMACY GLYCEMIC MGMT CONSULT PRN (23:02)
[2017-01-31] MEDS ORDERED: INSULIN ASPART 100 UNITS/ML 3 ML PEN SC STA (23:13)
[2017-01-31] MEDS ORDERED: GLUCOSE 10 TABS/TUBE PO PRN (23:15)
[2017-01-31] MEDS ORDERED: GLUCOSE 40% GEL 15 GM TUBE PO PRN (23:15)
[2017-01-31] MEDS ORDERED: GLUCAGON FOR INJ 1 MG VIAL SQ PRN (23:15)
[2017-01-31] MEDS ORDERED: DEXTROSE 50% 50 ML SYR IV PRN (23:15)
[2017-01-31] MEDS: SODIUM CHLORIDE 0.9% 1000ML 1,000 ML IV SCH (23:46)
[2017-02-01] VITALS (7 sets, daily range): BP systolic 122–156; BP diastolic 66–82; PULSE 81–87; TEMP 36.3–37.1; O2SAT 94–97
[2017-02-01] MEDS: HYDROmorphone INJ 1 MG/ML SYR IV PRN ×4 (01:50→20:48)
[2017-02-01] MEDS: METRONIDAZOLE / NSS 500 MG in PREMIXED NSS 100 ML IV SCH ×2 (03:04→11:11)
[2017-02-01] MEDS ORDERED: INSULIN ASPART 100 UNITS/ML 3 ML PEN SC SCH ×2 (04:00→08:00)
[2017-02-01] MEDS: ONDANSETRON INJ 2 MG/ML 2 ML VIAL IV PRN ×4 (07:31→20:48)
[2017-02-01 07:58] LABS: BASO % 0.1 %; BASO ABS # 0.02 K/uL (0-0.2); COMPLETE YES; HEMATOCRIT 32.7 % (37-47); IG% 0.3 %; LYMPH ABS # 1.01 K/uL (1.2-3.4); MEAN CELL VOLUME 83.4 fL (80-100); MEAN CORPUSCULAR HGB CONC 31.2 g/dl (32-36); MONO % 8.1 %; NEUT % 84.5 %; PLATELET COUNT 326 K/uL (130-400); RED BLOOD COUNT 3.92 M/uL (4.2-5.4)
[2017-02-01 08:33] LABS: BUN/CREATININE RATIO 7.9 (10-20); CREATININE 1.4 mg/dl (0.60-1.20); POTASSIUM 4.1 mmol/L (3.5-5.1)
[2017-02-01 08:36] LABS: ALB/GLOB RATIO 0.8 (0.9-2)
[2017-02-01 08:41] LABS: CALCIUM 8.2 mg/dl (8.5-10.1)
[2017-02-01] MEDS: SODIUM CHLORIDE 0.9% 1000ML 1,000 ML IV SCH ×2 (08:44→17:36)
[2017-02-01] MEDS: CIPROFLOXACIN / D5W 400 MG in PREMIXED IN D5W 200 ML IV SCH ×2 (08:44→20:50)
[2017-02-01] MEDS ORDERED: NURSING VERBAL MED ORDER ONE (12:00)
--- NOTE | 2017-02-01 12:04 | Surgery Progress Note ---
Surgery Progress Note Date of Service February 01, 2017. Subjective Post OP Day: 1 + feeling well pt is stable overnight, some nausea, no vomiting, urine output 250ml /5 hours, NG 200ml, good control incisional pain, Objective Vital Signs: Date Time Temp Pulse Resp B/P Pulse Ox O2 Delivery O2 Flow Rate FiO2 02/01/17 07:59 36.5 81 12 156/82 95 Nasal Cannula 2.0 02/01/17 07:25 Nasal Cannula 2.0 02/01/17 05:25 95 Nasal Cannula 2.0 02/01/17 03:40 36.6 84 16 126/76 97 Nasal Cannula 3.0 01/31/17 23:50 Nasal Cannula 3.0 01/31/17 23:08 36.6 78 16 136/82 97 Nasal Cannula 3.0 01/31/17 18:35 36.4 82 17 119/69 98 Nasal Cannula 3.0 01/31/17 17:35 36.3 76 16 120/75 98 Nasal Cannula 3.0 01/31/17 16:34 36.4 72 16 146/75 97 Nasal Cannula 3.0 01/31/17 16:05 36.3 71 16 137/79 99 Nasal Cannula 3.0 01/31/17 15:40 Nasal Cannula 3.0 01/31/17 15:35 95 Nasal Cannula 3.0 01/31/17 15:35 36.6 72 134/77 98 Nasal Cannula 3.0 01/31/17 15:15 36.0 67 18 128/74 96 Nasal Cannula 3 01/31/17 15:05 36.0 68 18 137/83 94 Nasal Cannula 3 01/31/17 14:55 67 18 123/78 94 Nasal Cannula 3 01/31/17 14:45 65 18 139/72 97 Mask 10 01/31/17 14:35 61 18 123/78 98 Mask 10 01/31/17 14:29 36.0 60 18 122/64 98 Mask 10 General Appearance: WD/WN Head: normocephalic Neck: supple, no JVD Respiratory/Chest: chest non-tender, lungs clear Cardiovascular: regular rate, rhythm, no edema, no gallop Abdomen: normal bowel sounds, non tender, non distended, soft, + tenderness Incision(s): clean, dry, intact Extremities: normal range of motion, non-tender, normal inspection Laboratory Results: Results Past 24 Hours Test 01/31/17 14:34 01/31/17 18:34 01/31/17 23:45 02/01/17 03:47 Range/Units Bedside Glucose 199 250 211 197 70-90 mg/dl Test 02/01/17 07:24 02/01/17 07:53 Range/Units White Blood Count 14.50 4.8-10.8 K/uL Red Blood Count 3.92 4.2-5.4 M/uL Hemoglobin 10.2 12.0-16.0 g/dL Hematocrit 32.7 37-47 % Mean Corpuscular Volume 83.4 80-100 fL Mean Corpuscular Hemoglobin 26.0 25-34 pg Mean Corpuscular Hemoglobin Concent 31.2 32-36 g/dl Platelet Count 326 130-400 K/uL Mean Platelet Volume 10.0 7.4-10.4 fL Neutrophils (%) (Auto) 84.5 % Lymphocytes (%) (Auto) 7.0 % Monocytes (%) (Auto) 8.1 % Eosinophils (%) (Auto) 0.0 % Basophils (%) (Auto) 0.1 % Neutrophils # (Auto) 12.26 1.4-6.5 K/uL Lymphocytes # (Auto) 1.01 1.2-3.4 K/uL Monocytes # (Auto) 1.17 0.11-0.59 K/uL Eosinophils # (Auto) 0.00 0-0.5 K/uL Basophils # (Auto) 0.02 0-0.2 K/uL RDW Standard Deviation 45.5 36.4-46.3 fL RDW Coefficient of Variation 15.0 11.5-14.5 % Immature Granulocyte % (Auto) 0.3 % Immature Granulocyte # (Auto) 0.04 0.00-0.02 K/uL Sodium Level 142 136-145 mmol/L Potassium Level 4.1 3.5-5.1 mmol/L Chloride Level 108 98-107 mmol/L Carbon Dioxide Level 25 21-32 mmol/L Anion Gap 9.0 3-11 mmol/L Blood Urea Nitrogen 11 7-18 mg/dl Creatinine 1.40 0.60-1.20 mg/dl Est Creatinine Clear Calc Drug Dose 46.4 ml/min Estimated GFR () 44.6 Estimated GFR (Non- 38.5 BUN/Creatinine Ratio 7.9 10-20 Random Glucose 216 70-99 mg/dl Calcium Level 8.2 8.5-10.1 mg/dl Total Bilirubin 0.6 0.2-1 mg/dl Aspartate Amino Transf (AST/SGOT) 14 15-37 U/L Alanine Aminotransferase (ALT/SGPT) 21 12-78 U/L Alkaline Phosphatase 80 45-117 U/L Total Protein 6.7 6.4-8.2 gm/dl Albumin 3.0 3.4-5.0 gm/dl Globulin 3.7 2.5-4.0 gm/dl Albumin/Globulin Ratio 0.8 0.9-2 Bedside Glucose 230 70-90 mg/dl Assessment & Plan S/P right hemicolectomy POD 1 urine output low, increase iv fluid to 125 ml/h update information to pt about OR finding and the procedure pt had, pt understood, I answered all questions, repeat labs in am, will F/U resume home meds.
--- NOTE | 2017-02-01 12:49 | Pharmacy Progress Note ---
Glycemic Control Intl Consult Date of Service February 01, 2017. Scope Glycemic Pharmacist consulted by Dr Cabrera on 01/31/17 for glycemic control and to write orders per [facility] inpatient glycemic control protocol Objective Weight (Kilograms): 108.800 Accuchecks BSG (last 24hrs): Test 01/31/17 14:34 01/31/17 18:34 01/31/17 23:45 02/01/17 03:47 Bedside Glucose 199 mg/dl (70-90) 250 mg/dl (70-90) 211 mg/dl (70-90) 197 mg/dl (70-90) Test 02/01/17 07:24 02/01/17 07:53 Random Glucose 216 mg/dl (70-99) Bedside Glucose 230 mg/dl (70-90) Laboratory Data (last 24hrs) Test 02/01/17 07:24 Anion Gap 9.0 mmol/L BUN/Creatinine Ratio 7.9 Blood Urea Nitrogen 11 mg/dl Creatinine 1.40 mg/dl Potassium Level 4.1 mmol/L Sodium Level 142 mmol/L White Blood Count 14.50 K/uL Red Blood Count 3.92 M/uL Hemoglobin 10.2 g/dL Hematocrit 32.7 % Mean Corpuscular Volume 83.4 fL Mean Corpuscular Hemoglobin 26.0 pg Mean Corpuscular Hemoglobin Concent 31.2 g/dl Platelet Count 326 K/uL Mean Platelet Volume 10.0 fL Neutrophils (%) (Auto) 84.5 % Lymphocytes (%) (Auto) 7.0 % Monocytes (%) (Auto) 8.1 % Eosinophils (%) (Auto) 0.0 % Basophils (%) (Auto) 0.1 % Neutrophils # (Auto) 12.26 K/uL Lymphocytes # (Auto) 1.01 K/uL Monocytes # (Auto) 1.17 K/uL Eosinophils # (Auto) 0.00 K/uL Basophils # (Auto) 0.02 K/uL Recent Pertinent Medications Outpatient Anti-diabetic Regimen: * Metformin 1000 mg PO BID * A1c - 7.2 % (10/20/16) ordered for tomorrow Risk Factors for Insulin Resistance: * Infection * Recent Surgery - POD #1 hemicolectomy Assessment & Plan ASSESSMENT: * ADA & AACE recommend a goal blood sugar range 140-180 mg/dl for the majority of critically ill & non-critically ill patients. However, more stringent targets may be selected in individual cases. Will utilize more stringent goal of 110-140 mg/dl based on patient age & comorbidities. Additionally, tighter glycemic control is warranted to facilitate wound/infection healing. * 66 year old T2DM female admitted with hyperglycemia, s/p hemicolectomy. * Patient is maintained on oral diabetic agents at home. * Will hold oral agents for admission and utilize SQ basal bolus insulin regimen which is the recommended regimen for inpatient glycemic control. * Will initiate weight based insulin dosing for insulin lilo patient and titrate based on BSG trends. * Initial orders based off of weight and stress of 1-2 PLAN FOR INPATIENT GLYCEMIC CONTROL: * Holding outpatient oral diabetes medications * Basal insulin * Lantus 20 units SQ x 1 dose, then per scale until needs are better known * 10 units for BSG less than 180 mg/dL * 15 units for BSG 180 mg/dL and greater * Correctional Insulin with NOVOLOG per scale ACHS or Q6hrs while NPO * Goal Range: Low 110 mg/dL - High 140 mg/dL * Correction Factor: 20 mg/dL/unit * Nutritional / Prandial insulin per carb ratio of 1 unit per 7 grams CHO consumed (currently NPO) * Please note that the plan above was derived based on current level of insulin resistance and hospital stress. These recommendations are appropriate for inpatient admission only. Plan of care upon discharge will need to be reassessed to avoid potential outpatient hypo/hyperglycemia. Thank you.
[2017-02-01] MEDS: AMLODIPINE BESYLATE 5 MG TAB NG SCH (12:51)
[2017-02-01] MEDS: LISINOPRIL 20 MG TAB NG SCH (12:51)
[2017-02-01] MEDS: INSULIN ASPART 100 UNITS/ML 3 ML PEN SC SCH ×2 (12:55→18:22)
[2017-02-01] MEDS ORDERED: INSULIN GLARGINE SOLOSTAR 100 UNITS/ML 3 ML PEN SC ONE (13:00)
[2017-02-01] MEDS: LOVASTATIN 20 MG TAB NG SCH (20:50)
[2017-02-01] MEDS: INSULIN GLARGINE SOLOSTAR 100 UNITS/ML 3 ML PEN SC SCH (21:07)
[2017-02-02] VITALS (8 sets, daily range): BP systolic 131–161; BP diastolic 65–80; PULSE 59–86; TEMP 36.8–37.1; O2SAT 92–97
[2017-02-02] MEDS: INSULIN ASPART 100 UNITS/ML 3 ML PEN SC SCH ×4 (00:21→18:00)
[2017-02-02] MEDS: SODIUM CHLORIDE 0.9% 1000ML 1,000 ML IV SCH ×3 (01:16→17:55)
[2017-02-02] MEDS: HYDROmorphone INJ 1 MG/ML SYR IV PRN ×3 (01:34→23:27)
[2017-02-02] MEDS: ONDANSETRON INJ 2 MG/ML 2 ML VIAL IV PRN ×4 (01:36→23:27)
[2017-02-02] MEDS: LEVOTHYROXINE 88 MCG TAB NG SCH (05:25)
[2017-02-02 07:00] LABS: BASO % 0.2 %; BASO ABS # 0.02 K/uL (0-0.2); EOS % 0.1 %; HEMATOCRIT 27.5 % (37-47); IG% 0.3 %; LYMPH % 12.8 %; LYMPH ABS # 1.49 K/uL (1.2-3.4); MEAN CELL VOLUME 83.3 fL (80-100); MEAN CORPUSCULAR HEMOGLOBIN 26.7 pg (25-34); MEAN PLATELET VOLUME 9.3 fL (7.4-10.4); MONO % 9.6 %; PLATELET COUNT 258 K/uL (130-400); WHITE BLOOD COUNT 11.61 K/uL (4.8-10.8)
[2017-02-02] MEDS ORDERED: METOPROLOL TARTRATE 1 MG/ML VIAL IV STA (07:16)
--- NOTE | 2017-02-02 07:19 | Clinical Documentation Query ---
CLINICAL DOCUMENTATION QUERY 66-y/o female who has undergone hemicolectomy 2/2 colon CA. The H&P states, "No past medical hx on file." This is contrary to patient's home medication list which includes Norvasc, Levothyroxine, Lisinopril, Metformin, & Lovastatin. These medication are continued while inpatient. In your clinical opinion is this patient being managed for: ( ) Type 2 diabetes mellitus ( ) Hyperlipidemia ( ) Hypothyroidism ( ) Hypertension ( ) Other explanation of clinical findings (Please Explain) ( ) Unable to determine (Please Define) ( ) Need to Discuss ( ) Not Agree The medical record reflects the following clinical findings, treatment, and risk factors. Clinical Indicators: As above. Treatment: SS insulin coverage, Q4hr VS, I/O's, PO Norvasc, Levothyroxine, Lisinopril, Lovastatin, Risk Factors: Age Please clarify and document your clinical opinion in the progress notes and discharge summary. Terms such as "probable", "suspected", "likely", "questionable", "possible", or "still to be ruled out" are acceptable. IF IN AGREEMENT, YOU MUST DOCUMENT ABOVE DIAGNOSTIC STATEMENT IN DAILY PROGRESS NOTES AND DISCHARGE SUMMARY. This document is not part of the patient's record. Thank You, Ronak Barajas RN [phone]
[2017-02-02 07:28] LABS: COMPLETE YES
--- NOTE | 2017-02-02 07:30 | Surgery Progress Note ---
Surgery Progress Note Date of Service Feb 02, 2017. Subjective Post OP Day: 2 + feeling well pt is doing better, less abdominal pain, no nausea, no vomiting, not pass gas yet, NG 400ml. Objective Vital Signs: Date Time Temp Pulse Resp B/P (MAP) Pulse Ox O2 Delivery O2 Flow Rate FiO2 02/02/17 07:13 36.8 85 16 160/77 (104) 93 Room Air 02/01/17 23:15 Nasal Cannula 2.0 02/01/17 23:03 37.1 86 16 130/66 (87) 95 Nasal Cannula 1.0 02/01/17 15:45 Room Air 2.0 02/01/17 15:05 36.3 81 16 122/80 (94) 94 Room Air 02/01/17 14:06 95 Nasal Cannula 2.0 02/01/17 12:45 36.6 87 18 148/76 (100) 96 Nasal Cannula 2.0 02/01/17 07:59 36.5 81 12 156/82 (106) 95 Nasal Cannula 2.0 General Appearance: WD/WN Head: normocephalic Neck: supple, no JVD Respiratory/Chest: chest non-tender, lungs clear Cardiovascular: regular rate, rhythm, no edema, no gallop, no JVD Abdomen: normal bowel sounds, non tender, non distended, soft Incision(s): clean, dry, intact Extremities: normal range of motion, non-tender, normal inspection Laboratory Results: Results Past 24 Hours Test 02/01/17 07:53 02/01/17 11:54 02/01/17 18:03 02/01/17 20:58 Range/Units Bedside Glucose 230 217 142 125 70-90 mg/dl Test 02/02/17 00:01 02/02/17 05:59 02/02/17 06:44 Range/Units Bedside Glucose 146 148 70-90 mg/dl White Blood Count 11.61 4.8-10.8 K/uL Red Blood Count 3.30 4.2-5.4 M/uL Hemoglobin 8.8 12.0-16.0 g/dL Hematocrit 27.5 37-47 % Mean Corpuscular Volume 83.3 80-100 fL Mean Corpuscular Hemoglobin 26.7 25-34 pg Mean Corpuscular Hemoglobin Concent 32.0 32-36 g/dl Platelet Count 258 130-400 K/uL Mean Platelet Volume 9.3 7.4-10.4 fL Neutrophils (%) (Auto) 77.0 % Lymphocytes (%) (Auto) 12.8 % Monocytes (%) (Auto) 9.6 % Eosinophils (%) (Auto) 0.1 % Basophils (%) (Auto) 0.2 % Neutrophils # (Auto) 8.93 1.4-6.5 K/uL Lymphocytes # (Auto) 1.49 1.2-3.4 K/uL Monocytes # (Auto) 1.12 0.11-0.59 K/uL Eosinophils # (Auto) 0.01 0-0.5 K/uL Basophils # (Auto) 0.02 0-0.2 K/uL RDW Standard Deviation 46.2 36.4-46.3 fL RDW Coefficient of Variation 15.1 11.5-14.5 % Immature Granulocyte % (Auto) 0.3 % Immature Granulocyte # (Auto) 0.04 0.00-0.02 K/uL Assessment & Plan S/P right hemicolectomy POD 1 urine output low, increase iv fluid to 125 ml/h update information to pt about OR finding and the procedure pt had, pt understood, I answered all questions, repeat labs in am, will F/U resume home meds. 02/02/2017 POD2 pt is doing better, continue treatment, will F/U lopressor 25 mg ng bid, S/P right hemicolectomy POD 1 urine output low, increase iv fluid to 125 ml/h update information to pt about OR finding and the procedure pt had, pt understood, I answered all questions, repeat labs in am, will F/U resume home meds.
[2017-02-02 07:37] LABS: BUN/CREATININE RATIO 7.3 (10-20); CALCIUM 8.1 mg/dl (8.5-10.1); CREATININE 1.1 mg/dl (0.60-1.20); POTASSIUM 4.2 mmol/L (3.5-5.1)
[2017-02-02 07:40] LABS: ALB/GLOB RATIO 0.7 (0.9-2)
[2017-02-02] MEDS: METOPROLOL TARTRATE 25 MG TAB PO SCH ×2 (08:22→21:23)
[2017-02-02] MEDS: CIPROFLOXACIN / D5W 400 MG in PREMIXED IN D5W 200 ML IV SCH (08:35)
[2017-02-02] MEDS: FERROUS SULFATE ELIX 220MG/5ML NG SCH (08:44)
[2017-02-02] MEDS: AMLODIPINE BESYLATE 5 MG TAB NG SCH (08:45)
[2017-02-02] MEDS: LISINOPRIL 20 MG TAB NG SCH (09:00)
[2017-02-02] MEDS ORDERED: METOPROLOL TARTRATE 1 MG/ML VIAL IV. SCH (12:00)
--- NOTE | 2017-02-02 12:18 | Pharmacy Progress Note ---
Glycemic Control: Progress Nt Date of Service Feb 02, 2017. Scope Glycemic Pharmacist consulted by Dr Cabrera on 01/31/17 for glycemic control and to write orders per [facility] inpatient glycemic control protocol. Objective Accuchecks BSG (last 24hrs): Test 02/01/17 18:03 02/01/17 20:58 02/02/17 00:01 02/02/17 05:59 Bedside Glucose 142 mg/dl (70-90) 125 mg/dl (70-90) 146 mg/dl (70-90) 148 mg/dl (70-90) Test 02/02/17 06:44 Random Glucose 155 mg/dl (70-99) Laboratory Data (last 24hrs) Test 02/02/17 06:44 Anion Gap 7.0 mmol/L BUN/Creatinine Ratio 7.3 Blood Urea Nitrogen 8 mg/dl Creatinine 1.10 mg/dl Potassium Level 4.2 mmol/L Sodium Level 146 mmol/L White Blood Count 11.61 K/uL Red Blood Count 3.30 M/uL Hemoglobin 8.8 g/dL Hematocrit 27.5 % Mean Corpuscular Volume 83.3 fL Mean Corpuscular Hemoglobin 26.7 pg Mean Corpuscular Hemoglobin Concent 32.0 g/dl Platelet Count 258 K/uL Mean Platelet Volume 9.3 fL Neutrophils (%) (Auto) 77.0 % Lymphocytes (%) (Auto) 12.8 % Monocytes (%) (Auto) 9.6 % Eosinophils (%) (Auto) 0.1 % Basophils (%) (Auto) 0.2 % Neutrophils # (Auto) 8.93 K/uL Lymphocytes # (Auto) 1.49 K/uL Monocytes # (Auto) 1.12 K/uL Eosinophils # (Auto) 0.01 K/uL Basophils # (Auto) 0.02 K/uL Recent Pertinent Medications Outpatient Anti-diabetic Regimen: * Metformin 1000 mg PO BID * A1c - 7.2 % (10/20/16) ordered for tomorrow Risk Factors for Insulin Resistance: * Infection * Recent Surgery - POD #2 hemicolectomy Assessment & Plan ASSESSMENT: * 66 yo diabetic M s/p hemicolectomy requiring basal/bolus insulin for BSG management * Pt on metformin as an outpatient which will continue to be held while NPO * Pt initiated on wt based regimen yesterday which seems to be appropriate * Continue current Novolog and hold basal insulin for now as patient not on insulin at home and remains NPO * ADA & AACE recommend a goal blood sugar range 140-180 mg/dl for the majority of critically ill & non-critically ill patients. However, more stringent targets may be selected in individual cases. Will utilize more stringent goal of 110-140mg/dl based on patient age & comorbidities. Additionally, tighter glycemic control is warranted to facilitate wound/infection healing. PLAN FOR INPATIENT GLYCEMIC CONTROL: * Hold outpatient oral diabetes medications * Hold basal insulin for now (Patient received 30 units of Lantus yesterday total) * Initiate basal insulin if BSG >180 mg/dL X 2 * Correctional Insulin with NOVOLOG per scale ACHS or Q6hrs while NPO * Goal Range: Low 110 mg/dL - High 140 mg/dL * Correction Factor: 20 mg/dL/unit * Nutritional / Prandial insulin per carb ratio of 1 unit per 7 grams CHO consumed RECOMMENDATIONS FOR DISCHARGE: * awaited * Please note that the plan above was derived based on current level of insulin resistance and hospital stress. These recommendations are appropriate for inpatient admission only. Plan of care upon discharge will need to be reassessed to avoid potential outpatient hypo/hyperglycemia. Thank you.
[2017-02-02] MEDS ORDERED: NURSING VERBAL MED ORDER ONE (18:45)
[2017-02-02] MEDS: INSULIN GLARGINE SOLOSTAR 100 UNITS/ML 3 ML PEN SC SCH (21:00)
[2017-02-02] MEDS: LOVASTATIN 20 MG TAB NG SCH (21:23)
[2017-02-03] MEDS: SODIUM CHLORIDE 0.9% 1000ML 1,000 ML IV SCH ×3 (02:05→18:38)
[2017-02-03] MEDS: INSULIN ASPART 100 UNITS/ML 3 ML PEN SC SCH ×5 (06:00→23:35)
[2017-02-03] MEDS: LEVOTHYROXINE 88 MCG TAB NG SCH (06:09)
[2017-02-03 06:10] LABS: ESTIMATED AVERAGE GLUCOSE 160 mg/dl; HA1C FLAG Normal (Normal)
[2017-02-03 07:06] VITALS: BP 155/72; PULSE 79; TEMP 36.9; O2SAT 93
[2017-02-03] MEDS: INSULIN GLARGINE SOLOSTAR 100 UNITS/ML 3 ML PEN SC SCH (07:45)
[2017-02-03 08:14] LABS: HEMATOCRIT 27.2 % (37-47); MEAN CELL VOLUME 82.4 fL (80-100); MEAN CORPUSCULAR HEMOGLOBIN 25.8 pg (25-34); MEAN CORPUSCULAR HGB CONC 31.3 g/dl (32-36); MEAN PLATELET VOLUME 10.7 fL (7.4-10.4); PLATELET COUNT 280 K/uL (130-400); WHITE BLOOD COUNT 9.03 K/uL (4.8-10.8)
[2017-02-03 08:26] LABS: BUN/CREATININE RATIO 7.6 (10-20); CREATININE 0.94 mg/dl (0.60-1.20)
[2017-02-03] MEDS: AMLODIPINE BESYLATE 5 MG TAB NG SCH (09:00)
[2017-02-03] MEDS: FERROUS SULFATE ELIX 220MG/5ML NG SCH (09:00)
[2017-02-03] MEDS: METOPROLOL TARTRATE 25 MG TAB PO SCH ×2 (09:00→21:55)
[2017-02-03] MEDS: LISINOPRIL 20 MG TAB NG SCH (09:00)
--- NOTE | 2017-02-03 09:09 | Surgery Progress Note ---
Surgery Progress Note Date of Service Feb 03, 2017. Subjective Post OP Day: 3 (s/p right hemicolectomy) + feeling well, + ambulating, + bowel movement, + pain controlled, No complaints , No chest pain, No SOB, No nausea, No vomiting Objective Vital Signs: Date Time Temp Pulse Resp B/P (MAP) Pulse Ox O2 Delivery O2 Flow Rate FiO2 02/03/17 07:06 36.9 79 18 155/72 (99) 93 Room Air 02/02/17 23:59 Room Air 02/02/17 23:50 146/73 (97) 02/02/17 23:00 36.9 81 16 160/80 (106) 93 Room Air 02/02/17 21:21 86 152/77 (102) 02/02/17 20:05 Room Air 02/02/17 15:44 37.1 73 18 161/78 (105) 92 Room Air 02/02/17 09:55 59 131/65 (87) Physical Exam: CICI drainage (dark green to brown drainage) General Appearance: WD/WN, no apparent distress Head: normocephalic, atraumatic Neck: trachea midline Respiratory/Chest: no respiratory distress, no accessory muscle use Abdomen: non tender, non distended, soft Incision(s): clean, dry, intact, erythema Laboratory Results: Results Past 24 Hours Test 02/02/17 12:06 02/02/17 18:03 02/02/17 21:03 02/02/17 23:50 Range/Units Bedside Glucose 149 130 122 132 70-90 mg/dl Test 02/03/17 05:13 02/03/17 06:01 Range/Units White Blood Count 9.03 4.8-10.8 K/uL Red Blood Count 3.30 4.2-5.4 M/uL Hemoglobin 8.5 12.0-16.0 g/dL Hematocrit 27.2 37-47 % Mean Corpuscular Volume 82.4 80-100 fL Mean Corpuscular Hemoglobin 25.8 25-34 pg Mean Corpuscular Hemoglobin Concent 31.3 32-36 g/dl RDW Standard Deviation 45.5 36.4-46.3 fL RDW Coefficient of Variation 15.1 11.5-14.5 % Platelet Count 280 130-400 K/uL Mean Platelet Volume 10.7 7.4-10.4 fL Sodium Level 144 136-145 mmol/L Potassium Level 3.0 3.5-5.1 mmol/L Chloride Level 108 98-107 mmol/L Carbon Dioxide Level 27 21-32 mmol/L Anion Gap 9.0 3-11 mmol/L Blood Urea Nitrogen 7 7-18 mg/dl Creatinine 0.94 0.60-1.20 mg/dl Est Creatinine Clear Calc Drug Dose 69.0 ml/min Estimated GFR () 72.2 Estimated GFR (Non- 62.3 BUN/Creatinine Ratio 7.6 10-20 Random Glucose 127 70-99 mg/dl Estimated Average Glucose 160 mg/dl Hemoglobin A1c 7.2 4.5-5.6 % Calcium Level 8.0 8.5-10.1 mg/dl Bedside Glucose 124 70-90 mg/dl Assessment & Plan POD # 3 s/p Right hemicolectomy with primary anastomosis - vitals stable - H&H 8.5/27.2 today , patient is asymptomatic (has chronic anemia, takes oral iron at home) - +bowel function - abdominal pain minimal - path shows adenocarcinoma, low grade ,margins negative, lymph nodes positive Plan: Repeat labs in am daily dressing changes Keep NGT Start Protonix IV Continue NPO Continue pain management prn Continue IV antibiotics Dr. Weathers has seen and examined patient, agrees with above
[2017-02-03] MEDS: ONDANSETRON INJ 2 MG/ML 2 ML VIAL IV PRN ×2 (09:24→21:54)
--- NOTE | 2017-02-03 10:25 | Clinical Documentation Query ---
CLINICAL DOCUMENTATION QUERY 66-y/o female with colon CA. On POD#1 PRP revealed BUN 11, Creatinine 1.40, GFR 38.5. Progress note 6/ states, "urine output low, increase iv fluid to 125 ml/h." In your clinical opinion is this patient being managed for: ( ) JULIETH evidenced by increase in creatinine and decrease in GFR treated with IVF rate increase. ( ) Other explanation of clinical findings (Please Explain) ( ) Unable to determine (Please Define) ( ) Need to Discuss ( ) Not Agree The medical record reflects the following clinical findings, treatment, and risk factors. Clinical Indicators: As above. POD #1 BUN 11, Creatinine 1.40, GFR 38.5, by 6/2 BUN 7, Creatinine 0.94, GFR 62.3 Treatment: IVF rate increase, daily PRP's, I/O's Risk Factors: Fluid shifting in postoperative setting, Lisinopril therapy, and Age. Please clarify and document your clinical opinion in the progress notes and discharge summary. Terms such as "probable", "suspected", "likely", "questionable", "possible", or "still to be ruled out" are acceptable. IF IN AGREEMENT, YOU MUST DOCUMENT ABOVE DIAGNOSTIC STATEMENT IN DAILY PROGRESS NOTES AND DISCHARGE SUMMARY. This document is not part of the patient's record. AKIAcute Renal/Kidney Injury is defined as a rapid and usually reversible decline in GFR that may occur in the setting of normal renal function or with preexisting renal disease. Acute renal failure may present with a range of abnormal parameters. Current RIFLE criteria notes the following: "Patients can be classified either by GFR or by UO criteria." According to RIFLE, JULIETH is defined as any of the following: SCr increased 2-3x baseline or GFR decreased >50% or <0.5mL/kg/h > 12 hrs The SABAS criteria differ from the RIFLE criteria in several ways. The RIFLE criteria are defined as changes within 7 days, while the SABAS criteria suggest using 48 hours. The SABAS classification includes less severe injury in the criteria and SABAS also avoids using the glomerular filtration rate as a marker in JULIETH, as there is no dependable way to measure glomerular filtration rate and estimated glomerular filtration rate are unreliable in JULIETH. The criteria: Abrupt (within 48 h) reduction in kidney function currently defined as an absolute increase in serum creatinine of 0.3 mg/dL or more (=26.4 umol/L) or a percentage increase in serum creatinine of 50% or more (1.5-fold from baseline) or a reduction in urine output (documented oliguria of < 0.5 mL/kg/h for >6 h) In 2012 the Kidney Disease Improving Global Outcomes (KDIGO) released their clinical practice guidelines for acute kidney injury (JULIEHT), which build off of the RIFLE criteria and the SABAS criteria. KDIGO defines JULIETH as any of the following: Increase in serum creatinine by 0.3mg/dL or more within 48 hours or increase in serum creatinine to 1.5 times baseline or more within the last 7 days or urine output less than 0.5 mL/kg/h for 6 hours Thank You, Ronak Barajas RN [phone]
[2017-02-03] MEDS ORDERED: PANTOprazole INJ 80 MG in DEXTROSE 5% 100ML 100 ML IV ONE (12:00)
[2017-02-03] MEDS ORDERED: NURSING VERBAL MED ORDER ONE ×2 (13:30→21:30)
[2017-02-03 15:06] VITALS: BP 130/74; PULSE 72; TEMP 37.3; O2SAT 91
[2017-02-03] MEDS: BACITRACIN OINT 15 GM TUBE EXT SCH (19:33)
[2017-02-03] MEDS ORDERED: PANTOprazole INJ 40 MG in SYRINGE 0 ML IV SCH (21:00)
[2017-02-03] MEDS ORDERED: POTASSIUM CHLORIDE 20 MEQ/15 ML UDC NG STA (21:38)
[2017-02-03] MEDS ORDERED: POTASSIUM CHLORIDE INJ 40 MEQ in SODIUM CHLORIDE 0.9% 1000ML 1,000 ML IV SCH (21:45)
[2017-02-03 21:52] VITALS: BP 168/77; PULSE 72
[2017-02-03] MEDS: LANSOPRAZOLE SOLUTAB 30 MG NG SCH (21:55)
[2017-02-03] MEDS: LOVASTATIN 20 MG TAB NG SCH (21:56)
[2017-02-03] MEDS: POTASSIUM CHLORIDE INJ 40 MEQ in SODIUM CHLORIDE 0.9% 1000ML 1,000 ML IV SCH (22:15)
[2017-02-03] MEDS: HYDROmorphone INJ 1 MG/ML SYR IV PRN (22:19)
[2017-02-03 22:55] VITALS: BP 158/74; PULSE 67; TEMP 36.9; O2SAT 92
[2017-02-04] MEDS: HYDROmorphone INJ 1 MG/ML SYR IV PRN ×2 (03:41→07:39)
[2017-02-04] MEDS: ONDANSETRON INJ 2 MG/ML 2 ML VIAL IV PRN ×3 (03:41→23:40)
[2017-02-04] MEDS: LEVOTHYROXINE 88 MCG TAB NG SCH (05:42)
[2017-02-04] MEDS: INSULIN ASPART 100 UNITS/ML 3 ML PEN SC SCH ×4 (05:47→21:00)
[2017-02-04] MEDS: POTASSIUM CHLORIDE INJ 40 MEQ in SODIUM CHLORIDE 0.9% 1000ML 1,000 ML IV SCH ×2 (07:39→19:06)
[2017-02-04 07:57] VITALS: BP 180/82; PULSE 72; TEMP 36.8; O2SAT 94
[2017-02-04] MEDS: LANSOPRAZOLE SOLUTAB 30 MG NG SCH ×2 (08:45→21:00)
[2017-02-04] MEDS: METOPROLOL TARTRATE 25 MG TAB PO SCH ×2 (08:46→20:28)
[2017-02-04] MEDS: LISINOPRIL 20 MG TAB NG SCH (08:46)
[2017-02-04] MEDS: AMLODIPINE BESYLATE 5 MG TAB NG SCH (08:47)
[2017-02-04] MEDS: FERROUS SULFATE ELIX 220MG/5ML NG SCH (08:47)
--- NOTE | 2017-02-04 08:55 | Pharmacy Progress Note ---
Glycemic Control: Progress Nt Date of Service Feb 04, 2017. Scope Glycemic Pharmacist consulted by Dr Cabrera on 01/31/17 for glycemic control and to write orders per [facility] inpatient glycemic control protocol. Objective Accuchecks BSG (last 24hrs): Test 02/03/17 11:45 02/03/17 17:57 02/03/17 23:26 02/04/17 05:47 Bedside Glucose 125 mg/dl (70-90) 107 mg/dl (70-90) 105 mg/dl (70-90) 111 mg/dl (70-90) HbA1c: Test 02/03/17 05:13 Hemoglobin A1c 7.2 % (4.5-5.6) H Recent Pertinent Medications Outpatient Anti-diabetic Regimen: * Metformin 1000 mg PO BID * A1c - 7.2 % (10/20/16) Risk Factors for Insulin Resistance: * Recent Surgery - POD #4 hemicolectomy Assessment & Plan ASSESSMENT: * 66 yo diabetic M s/p hemicolectomy requiring basal/bolus insulin for BSG management * Pt on metformin as an outpatient which will continue to be held at this time * Pt initiated on wt based regimen on admission for BSGs consistently in the 200 's * Since surgery, Lantus has been held, pt has remained NPO, and BSGs continue to trend within goal range with 0 units of Novolog * Pt's diet advanced today to clears and pt consumed 42 g CHO at lunch * Current coverage provided 6 units which I thought to be a bit aggressive * Now that pt having some oral intake, loosen goal range and loosen carb coverage * Reassess as diet advances * ADA & AACE recommend a goal blood sugar range 140-180 mg/dl for the majority of critically ill & non-critically ill patients. However, more stringent targets may be selected in individual cases. PLAN FOR INPATIENT GLYCEMIC CONTROL: * Hold outpatient oral diabetes medications * Hold basal insulin for now * Initiate basal insulin if BSG >180 mg/dL X 2 * Correctional Insulin with NOVOLOG per scale ACHS or Q6hrs while NPO * Goal Range: Low 140 mg/dL - High 180 mg/dL * Correction Factor: 25 mg/dL/unit * Nutritional / Prandial insulin per carb ratio of 1 unit per 10 grams CHO consumed RECOMMENDATIONS FOR DISCHARGE: * awaited * Please note that the plan above was derived based on current level of insulin resistance and hospital stress. These recommendations are appropriate for inpatient admission only. Plan of care upon discharge will need to be reassessed to avoid potential outpatient hypo/hyperglycemia. Thank you.
[2017-02-04 10:48] VITALS: O2SAT 94
--- NOTE | 2017-02-04 11:50 | Surgery Progress Note ---
Surgery Progress Note Date of Service Feb 04, 2017. Subjective Post OP Day: 4 + feeling well pt is doing better, no abdominal pain, passed gas and BM, D/C NG tube today, Objective Vital Signs: Date Time Temp Pulse Resp B/P (MAP) Pulse Ox O2 Delivery O2 Flow Rate FiO2 02/04/17 10:48 94 Room Air 02/04/17 07:57 36.8 72 18 180/82 (114) 94 Room Air 02/03/17 22:55 36.9 67 18 158/74 (102) 92 Room Air 02/03/17 21:52 72 168/77 (107) 02/03/17 19:40 Room Air 02/03/17 16:00 Room Air 02/03/17 15:06 37.3 72 18 130/74 (92) 91 Room Air General Appearance: WD/WN Head: normocephalic Neck: supple, no JVD Respiratory/Chest: chest non-tender, lungs clear Cardiovascular: regular rate, rhythm, no edema, no gallop, no JVD Abdomen: normal bowel sounds, non tender, non distended, soft Incision(s): clean, dry, intact Extremities: normal range of motion, non-tender, normal inspection Laboratory Results: Results Past 24 Hours Test 02/03/17 17:57 02/03/17 23:26 02/04/17 05:47 Range/Units Bedside Glucose 107 105 111 70-90 mg/dl Assessment & Plan S/P right hemicolectomy POD 1 urine output low, increase iv fluid to 125 ml/h update information to pt about OR finding and the procedure pt had, pt understood, I answered all questions, repeat labs in am, will F/U resume home meds. 02/02/2017 POD2 pt is doing better, continue treatment, will F/U lopressor 25 mg ng bid, 02/04/2017 pt is doing better, D/C NGT clear diet today, clear liquids S/P right hemicolectomy POD 1 urine output low, increase iv fluid to 125 ml/h update information to pt about OR finding and the procedure pt had, pt understood, I answered all questions, repeat labs in am, will F/U resume home meds. 02/02/2017 POD2 pt is doing better, continue treatment, will F/U lopressor 25 mg ng bid,
[2017-02-04 11:51] VITALS: BP 162/90; PULSE 66; TEMP 36.9; O2SAT 96
[2017-02-04] MEDS ORDERED: NURSING DECISION MEDICATION ORDER SCH (12:15)
[2017-02-04] MEDS: BACITRACIN OINT 15 GM TUBE EXT SCH (14:08)
[2017-02-04 15:16] VITALS: BP 152/82; PULSE 68; TEMP 36.9; O2SAT 92
[2017-02-04] MEDS: LOVASTATIN 20 MG TAB NG SCH (20:27)
[2017-02-04 22:50] VITALS: BP 165/89; PULSE 57; TEMP 37.1; O2SAT 92
[2017-02-05] MEDS: LEVOTHYROXINE 88 MCG TAB NG SCH (05:23)
[2017-02-05] MEDS: POTASSIUM CHLORIDE INJ 40 MEQ in SODIUM CHLORIDE 0.9% 1000ML 1,000 ML IV SCH (05:23)
[2017-02-05] MEDS: BACITRACIN OINT 15 GM TUBE EXT SCH (07:39)
[2017-02-05 07:44] VITALS: BP 160/88; PULSE 64; TEMP 36.5; O2SAT 96
[2017-02-05] MEDS: INSULIN ASPART 100 UNITS/ML 3 ML PEN SC SCH ×4 (09:12→20:53)
[2017-02-05] MEDS: LANSOPRAZOLE SOLUTAB 30 MG NG SCH ×2 (09:13→21:13)
[2017-02-05] MEDS: METOPROLOL TARTRATE 25 MG TAB PO SCH ×2 (09:13→21:13)
[2017-02-05] MEDS: AMLODIPINE BESYLATE 5 MG TAB NG SCH (09:13)
[2017-02-05] MEDS: FERROUS SULFATE ELIX 220MG/5ML NG SCH (09:14)
[2017-02-05] MEDS: LISINOPRIL 20 MG TAB NG SCH (09:14)
[2017-02-05] MEDS ORDERED: NURSING VERBAL MED ORDER ONE ×2 (10:30→22:00)
--- NOTE | 2017-02-05 10:40 | Surgery Progress Note ---
Surgery Progress Note Date of Service Feb 05, 2017. Subjective Post OP Day: 5 + feeling well pt is doing better, no nausea, no vomiting, she tolerated clear diet, Objective Vital Signs: Date Time Temp Pulse Resp B/P (MAP) Pulse Ox O2 Delivery O2 Flow Rate FiO2 02/05/17 07:44 36.5 64 16 160/88 (112) 96 Room Air 02/05/17 07:44 Room Air 02/04/17 23:40 Room Air 02/04/17 22:50 37.1 57 16 165/89 (114) 92 Room Air 02/04/17 16:30 Room Air 02/04/17 15:16 36.9 68 16 152/82 (105) 92 Room Air 02/04/17 11:51 36.9 66 17 162/90 (114) 96 Room Air 02/04/17 10:48 94 Room Air General Appearance: WD/WN Head: normocephalic Neck: supple Respiratory/Chest: chest non-tender, lungs clear Cardiovascular: regular rate, rhythm, no edema, no gallop Abdomen: normal bowel sounds, non tender, non distended, soft Incision(s): clean, dry, intact Extremities: normal range of motion, non-tender, normal inspection Laboratory Results: Results Past 24 Hours Test 02/04/17 12:10 02/04/17 17:10 02/04/17 20:46 02/05/17 07:57 Range/Units Bedside Glucose 112 113 103 131 70-90 mg/dl Assessment & Plan S/P right hemicolectomy POD 1 urine output low, increase iv fluid to 125 ml/h update information to pt about OR finding and the procedure pt had, pt understood, I answered all questions, repeat labs in am, will F/U resume home meds. 02/02/2017 POD2 pt is doing better, continue treatment, will F/U lopressor 25 mg ng bid, 02/04/2017 pt is doing better, D/C NGT clear diet today, 02/05/2017 doing well Full liquid diet, D/C IV fluid cbc, cmp in am will F/U possible D/C home tomorrow, S/P right hemicolectomy POD 1 urine output low, increase iv fluid to 125 ml/h update information to pt about OR finding and the procedure pt had, pt understood, I answered all questions, repeat labs in am, will F/U resume home meds. 02/02/2017 POD2 pt is doing better, continue treatment, will F/U lopressor 25 mg ng bid, 02/04/2017 pt is doing better, D/C NGT clear diet today,
[2017-02-05 10:44] VITALS: BP 141/67
[2017-02-05 15:09] VITALS: BP 174/78; PULSE 63; TEMP 36.9; O2SAT 95
[2017-02-05] MEDS: LOVASTATIN 20 MG TAB NG SCH (21:12)
[2017-02-05 23:10] VITALS: BP 148/71; PULSE 57; TEMP 37; O2SAT 98
[2017-02-06] MEDS: LEVOTHYROXINE 88 MCG TAB NG SCH (05:34)
[2017-02-06 06:25] LABS: BASO % 0.6 %; BASO ABS # 0.04 K/uL (0-0.2); COMPLETE YES; EOS % 3.1 %; HEMATOCRIT 32.4 % (37-47); IG% 0.3 %; LYMPH % 21.5 %; LYMPH ABS # 1.44 K/uL (1.2-3.4); MEAN CELL VOLUME 80.2 fL (80-100); MEAN CORPUSCULAR HEMOGLOBIN 25.7 pg (25-34); MEAN CORPUSCULAR HGB CONC 32.1 g/dl (32-36); MEAN PLATELET VOLUME 9.7 fL (7.4-10.4); MONO % 9.6 %; NEUT % 64.9 %; PLATELET COUNT 337 K/uL (130-400); RED BLOOD COUNT 4.04 M/uL (4.2-5.4)
[2017-02-06 06:58] LABS: BUN/CREATININE RATIO 3.9 (10-20); CALCIUM 8.5 mg/dl (8.5-10.1); CREATININE 0.88 mg/dl (0.60-1.20); POTASSIUM 3.2 mmol/L (3.5-5.1)
[2017-02-06 07:01] LABS: ALB/GLOB RATIO 0.7 (0.9-2)
[2017-02-06 08:04] VITALS: BP 136/79; PULSE 76; TEMP 37; O2SAT 97
[2017-02-06] MEDS: LANSOPRAZOLE SOLUTAB 30 MG NG SCH (09:00)
[2017-02-06] MEDS: LISINOPRIL 20 MG TAB NG SCH (09:00)
[2017-02-06] MEDS: BACITRACIN OINT 15 GM TUBE EXT SCH (09:00)
[2017-02-06] MEDS ORDERED: FERROUS GLUCONATE 324 MG TAB PO SCH (09:00)
[2017-02-06] MEDS: AMLODIPINE BESYLATE 5 MG TAB NG SCH (09:01)
[2017-02-06] MEDS: METOPROLOL TARTRATE 25 MG TAB PO SCH (09:02)
[2017-02-06] MEDS: INSULIN ASPART 100 UNITS/ML 3 ML PEN SC SCH (09:08)
[2017-02-06] MEDS ORDERED: POTASSIUM CHLORIDE 20 MEQ TABCR PO ONE (09:15)
--- NOTE | 2017-02-06 10:45 | Pharmacy Progress Note ---
Glycemic Control: Progress Nt Date of Service Feb 06, 2017. Scope Glycemic Pharmacist consulted for glycemic control and to write orders per [facility] inpatient glycemic control protocol. Objective Accuchecks BSG (last 24hrs): Test 02/05/17 12:11 02/05/17 17:48 02/05/17 20:37 02/06/17 05:55 Bedside Glucose 121 mg/dl (70-90) 110 mg/dl (70-90) 140 mg/dl (70-90) Random Glucose 154 mg/dl (70-99) Laboratory Data (last 24hrs) HbA1c: Test 02/03/17 05:13 Hemoglobin A1c 7.2 % (4.5-5.6) H Recent Pertinent Medications Outpatient Anti-diabetic Regimen: * Metformin 1,000mg PO BIDM The patient is currently receiving: * Basal insulin: N/A, none ordered at this time * Correctional Insulin: Novolog Correction per scale ACHS Goal Range: Low 140 mg/dL - High 180 mg/dL Correction Factor: 25 mg/dL/unit * Prandial insulin: Per carb ratio of 1 unit per 10 grams CHO consumed * Oral Agents: On hold for admission Risk Factors for Insulin Resistance: * Recent Surgery * Diet Assessment & Plan ASSESSMENT: * Patient is currently receiving an average of 0 units of insulin per day while NPO but ~40units per day while under stress * BSGs ranging 110 -156 over the past 24hrs * Changes needed to regimen at this time: * AM Fasting BSG = 156mg/dl --> this is above goal range. Will resume basal insulin now that diet advancing * Post-prandial BSGs are in range, but not really able to assess current parameters d/t low PO intake. Will not change CF/CR at this time * ADA & AACE recommend a goal blood sugar range 140-180 mg/dl for the majority of critically ill & non-critically ill patients. However, more stringent targets may be selected in individual cases. Will utilize more stringent goal of 110-140mg/dl based on patient age & comorbidities. Additionally, tighter glycemic control is warranted to facilitate healing post-operatively. PLAN FOR INPATIENT GLYCEMIC CONTROL: * Hold outpatient oral diabetes medications * Will resume metformin once full PO/food diet resumed. Will d/c basal insulin when metformin resumed * Basal insulin: resume d/t advancing diet and rising AM fasting BSG * Start Lantus 10 units SQ daily * Bolus insulin: lower goal range only * NovoLog per scale ACHS or Q6hrs while NPO * Goal Range: Low 140 mg/dL - High 180 mg/dL --> lower goal range to 110-140 * Correction Factor: 25 mg/dL/unit * Nutritional / Prandial insulin per carb ratio of 1 unit per 10 grams CHO consumed RECOMMENDATIONS FOR DISCHARGE: * A1c = 7.2% on 02/03/17 * This is in goal range * No changes needed to outpatient regimen. Insulin only being used in house while metformin on hold. * Please note that the plan above was derived based on current level of insulin resistance and hospital stress. These recommendations are appropriate for inpatient admission only. Plan of care upon discharge will need to be reassessed to avoid potential outpatient hypo/hyperglycemia. Thank you.
--- NOTE | 2017-02-06 10:46 | Surgery Progress Note ---
Surgery Progress Note Date of Service Feb 06, 2017. Subjective + feeling well pt is doing fine, no abdominal pain, no nausea, no vomiting, she walked on hallway, pt wants to go home today, Objective Vital Signs: Date Time Temp Pulse Resp B/P (MAP) Pulse Ox O2 Delivery O2 Flow Rate FiO2 02/06/17 08:04 37.0 76 16 136/79 (98) 97 Room Air 02/06/17 07:30 Room Air 02/05/17 23:50 Room Air 02/05/17 23:10 37.0 57 18 148/71 (96) 98 Room Air 02/05/17 15:15 Room Air 02/05/17 15:09 36.9 63 16 174/78 (110) 95 Room Air General Appearance: WD/WN, no apparent distress Head: normocephalic Neck: supple, no JVD Respiratory/Chest: chest non-tender, lungs clear, normal breath sounds Cardiovascular: regular rate, rhythm, no edema, no gallop, no JVD Abdomen: normal bowel sounds, non tender, non distended, soft Incision(s): clean, dry, intact Extremities: normal range of motion, non-tender, normal inspection Laboratory Results: Results Past 24 Hours Test 02/05/17 12:11 02/05/17 17:48 02/05/17 20:37 02/06/17 05:55 Range/Units Bedside Glucose 121 110 140 70-90 mg/dl White Blood Count 6.70 4.8-10.8 K/uL Red Blood Count 4.04 4.2-5.4 M/uL Hemoglobin 10.4 12.0-16.0 g/dL Hematocrit 32.4 37-47 % Mean Corpuscular Volume 80.2 80-100 fL Mean Corpuscular Hemoglobin 25.7 25-34 pg Mean Corpuscular Hemoglobin Concent 32.1 32-36 g/dl Platelet Count 337 130-400 K/uL Mean Platelet Volume 9.7 7.4-10.4 fL Neutrophils (%) (Auto) 64.9 % Lymphocytes (%) (Auto) 21.5 % Monocytes (%) (Auto) 9.6 % Eosinophils (%) (Auto) 3.1 % Basophils (%) (Auto) 0.6 % Neutrophils # (Auto) 4.35 1.4-6.5 K/uL Lymphocytes # (Auto) 1.44 1.2-3.4 K/uL Monocytes # (Auto) 0.64 0.11-0.59 K/uL Eosinophils # (Auto) 0.21 0-0.5 K/uL Basophils # (Auto) 0.04 0-0.2 K/uL RDW Standard Deviation 42.7 36.4-46.3 fL RDW Coefficient of Variation 14.6 11.5-14.5 % Immature Granulocyte % (Auto) 0.3 % Immature Granulocyte # (Auto) 0.02 0.00-0.02 K/uL Sodium Level 143 136-145 mmol/L Potassium Level 3.2 3.5-5.1 mmol/L Chloride Level 107 98-107 mmol/L Carbon Dioxide Level 28 21-32 mmol/L Anion Gap 8.0 3-11 mmol/L Blood Urea Nitrogen 3 7-18 mg/dl Creatinine 0.88 0.60-1.20 mg/dl Est Creatinine Clear Calc Drug Dose 73.7 ml/min Estimated GFR () 78.2 Estimated GFR (Non- 67.5 BUN/Creatinine Ratio 3.9 10-20 Random Glucose 154 70-99 mg/dl Calcium Level 8.5 8.5-10.1 mg/dl Total Bilirubin 0.4 0.2-1 mg/dl Aspartate Amino Transf (AST/SGOT) 11 15-37 U/L Alanine Aminotransferase (ALT/SGPT) 11 12-78 U/L Alkaline Phosphatase 76 45-117 U/L Total Protein 6.6 6.4-8.2 gm/dl Albumin 2.7 3.4-5.0 gm/dl Globulin 3.9 2.5-4.0 gm/dl Albumin/Globulin Ratio 0.7 0.9-2 Assessment & Plan S/P right hemicolectomy POD 1 urine output low, increase iv fluid to 125 ml/h update information to pt about OR finding and the procedure pt had, pt understood, I answered all questions, repeat labs in am, will F/U resume home meds. 02/02/2017 POD2 pt is doing better, continue treatment, will F/U lopressor 25 mg ng bid, 02/04/2017 pt is doing better, D/C NGT clear diet today, 02/05/2017 doing well Full liquid diet, D/C IV fluid cbc, cmp in am will F/U possible D/C home tomorrow, 02/06/2017 D/C home today, I gave pt post -op care instruction, F/U 1 week [phone] full liquids S/P right hemicolectomy POD 1 urine output low, increase iv fluid to 125 ml/h update information to pt about OR finding and the procedure pt had, pt understood, I answered all questions, repeat labs in am, will F/U resume home meds. 02/02/2017 POD2 pt is doing better, continue treatment, will F/U lopressor 25 mg ng bid, 02/04/2017 pt is doing better, D/C NGT clear diet today, 02/05/2017 doing well Full liquid diet, D/C IV fluid cbc, cmp in am will F/U possible D/C home tomorrow,
--- NOTE | 2017-02-06 10:52 | Discharge Instructions ---
Discharge Instructions Date of Service Feb 06, 2017. Admission Reason for Admission: Malignant Neoplasm Of Ascending Colon Discharge Discharge Diagnosis / Problem: S/P right hemicolectomy Discharge Goals Goal(s): Decrease discomfort, Improve function Activity Recommendations Activity Limitations: per Instructions/Follow-up section Lifting Limitations: no more than 25 pounds Exercise/Sports Limitations: gradually increase as tolerated May Resume Sexual Activity: when tolerated Shower/Bathe: may shower/bathe in 3 days Driving or Machine Use: resume 3 days after discharge . Instructions / Follow-Up Instructions / Follow-Up keep the dressing on for 1 day, she can take a shower on 02/07/2017, Follow up me in 1 week, Current Hospital Diet Patient's current hospital diet: Full Liquid Diet Discharge Diet Recommended Diet: Full Liquid Diet (full liquid diet today, soft diet start on) Procedures Procedures Performed: Right Hemicolectomy Pending Studies Studies pending at discharge: no Laboratory Results Hemoglobin A1c Test 02/03/17 05:13 Range/Units Estimated Average Glucose 160 mg/dl Hemoglobin A1c 7.2 H 4.5-5.6 % Medical Emergencies . Who to Call and When: Medical Emergencies: If at any time you feel your situation is an emergency, please call 911 immediately. . Non-Emergent Contact Non-Emergency issues call your: Surgeon Call Non-Emergent contact if: you have a fever, temperature is above 100.5, your pain is not controlled, your pain is worsening, wound has increased drainage, wound has increased redness . "Provider Documentation" section prepared by Morena Weathers. . VTE Core Measure Inpt VTE Proph given/why not?: SCD's [place] Drug Monitoring Program Search Results: no issues identified
[2017-02-06 11:02] VITALS: BP 136/79; PULSE 76; TEMP 37; O2SAT 97
[2017-02-06] MEDS ORDERED: INSULIN GLARGINE SOLOSTAR 100 UNITS/ML 3 ML PEN SC SCH (12:00)
[2017-02-06] MEDS ORDERED: POTASSIUM CHLORIDE 20 MEQ TABCR PO SCH (21:00)
--- NOTE | 2017-02-08 10:35 | Discharge Summary ---
Discharge Summary Dates Admission Date / Time: January 31, 2017 at 10:46 Discharge Date: Feb 06, 2017 Dispostion / Condition Discharge Disposition: Home Condition at Discharge: Good Principal Diagnosis (1) Colon cancer Consultations / Procedures Consultations: None Procedures: Exploratory laparotomy, Right Hemicolectomy with primary anastomosis Pending Studies / Follow-Up None Medication Reconciliation Continued Medications: Acetaminophen (Tylenol) 325 Mg Tab 975 MG PO Q6 PRN for Pain, TAB Amlodipine (Norvasc) 5 Mg Tab 5 MG PO QAM, TAB Docusate Sodium (Docusate Sodium) 100 Mg Cap 100 MG PO BID PRN for Constipation, #30 CAP 0 Refills Ferrous Sulfate (Iron) 45 Mg Tab 65 MG PO QAM Levothyroxine Sodium (Levothyroxine Sodium) 88 Mcg Tab 1 TAB PO QAM for 90 Days, #90 TAB 3 Refills Lisinopril (Lisinopril) 20 Mg Tab 1 TAB PO QAM Lovastatin (Mevacor) 20 Mg Tab 20 MG PO QPM, TAB Metformin Hcl (Glucophage) 1,000 Mg Tab 1000 MG PO BID, TAB Admission HPI Per the Admitting provider: Lacie is a 66 year-old female who was diagnosed with right sided colon cancer on colonoscopy. Was seen as an outpatient with Dr. Weathers and scheduled for right hemicolectomy possible ostomy. Hospital Course (1) Colon cancer Patient was taken to operating room for exploratory laparotomy, right hemicolectomy and possible ostomy. Patient tolerated procedure well and was transferred to PACU and then Med/Surg floor in stable condition. Post op orders included: IV fluids, IV Cipro/Flagyl, am labs, NGT to low intermittent suction, IV Zofran, IV Dilaudid, and patient kept NPO. POD # 1 patient was doing well, she had slight nausea and her urine output was low at 250 mls/5 hrs. IV fluids were increased to 125 mls/hr. rest of orders were continued. POD # 2 patient had no nausea or vomiting, no return of bowel function and NGT had 400 mls output in 24 hours. Orders continued. POD # 3 patient had return of bowel function. NGT output looked slight dark so IV Protonix was started. Hemoglobin and hematocrit 8.5/27 respectively. Patient has chronic anemia and takes Iron at home. Pre-op Hemoglobin was 10. AM labs to be repeated. POD # 4 NGT was discontinued and clear liquids started. H&H stable. POD # 5 diet was advanced to full liquids and IV fluids discontinued. She was discharged on POD # 6 in stable condition as pain was controlled, ambulated, and urinating without difficulty. Overall hospital course was uneventful. Pathology showed low grade adenocarcinoma with negative margins and 1 lymph nodes positive. Discharge Instructions as given to patient Copies To Primary Care Provider: Eh Calhoun M.D.. Problem Qualifiers (1) Colon cancer: Colon location: ascending Qualified Codes: C18.2 - Malignant neoplasm of ascending colon
== END 2017-02-06 12:05 | disposition home or self-care (01) | DRG 330 ==
LOC: ENRESERVDT → ENRESERVTM → C.ACU 08:52 → C.MSW 10:46
PROVIDERS: ADMIT Surgery; ATTEND Surgery
PROC: 0WBH0ZX Excision of Retroperitoneum, Open Approach, Diagnostic (ICD-10-PCS; principal; 2017-01-31 11:15)
PROC: 0DTF0ZZ Resection of Right Large Intestine, Open Approach (ICD-10-PCS; principal; 2017-01-31 11:15)
DX: C18.2 Malignant neoplasm of ascending colon (principal); C78.6 Secondary malignant neoplasm of retroperitoneum and peritoneum; Z68.41 Body mass index [BMI] 40.0-44.9, adult; I10 Essential (primary) hypertension; E11.9 Type 2 diabetes mellitus without complications; E66.01 Morbid (severe) obesity due to excess calories; Z79.899 Other long term (current) drug therapy; Z79.84 Long term (current) use of oral hypoglycemic drugs

== ENCOUNTER 2017-03-13 05:28 | Day surgery (SDC) | payer OTHER ==
[~2017-03-13 05:28] MED LIST changes: +ACET-1311 PO; -ATROPINE SULFATE 0.1 MG/ML 5ML SYR IV PRN; -CIPROFLOXACIN / D5W 400 MG IV SCH; -EpHEDrine SULFATE INJ 50 MG/ML AMP IV PRN; -FENTANYL CITRATE INJ 50 MCG/1 ML 2 ML VIAL IV PRN; -HYDROmorphone INJ 1 MG/ML SYR IV PRN; -LABETALOL HCL IV 5 MG/ML 20ML IV PRN; -LACTATED RINGER'S 1000ML 1,000 ML IV SCH; -MEPERIDINE HCL 25 MG/ML CARP IV PRN; -METRONIDAZOLE 500MG / NSS IV SCH; -ONDANSETRON INJ 2 MG/ML 2 ML VIAL IV PRN; -OXYC-57 PO
[2017-03-13 05:53] VITALS: BP 173/86; PULSE 80; TEMP 36.7; O2SAT 98
[2017-03-13] MEDS ORDERED: LACTATED RINGER'S 1000ML 1,000 ML IV SCH (06:00)
[2017-03-13] MEDS ORDERED: SODIUM CHLORIDE 0.9% 1000ML 1,000 ML IV SCH (06:00)
[2017-03-13] MEDS ORDERED: CLINDAMYCIN IV 900 MG in DEXTROSE 5% 100ML 100 ML IV SCH (06:00)
[2017-03-13] MEDS ORDERED: MIDAZOLAM HCL 1 MG/ML 2ML VIAL ONE (06:17)
[2017-03-13] MEDS ORDERED: PROPOFOL IV EMULSION 10 MG/ML 20 ML VIAL IV ONE (06:17)
[2017-03-13] MEDS ORDERED: FENTANYL CITRATE INJ 50 MCG/1 ML 2 ML VIAL ONE ×2 (06:17→07:23)
[2017-03-13] MEDS ORDERED: LIDOCAINE HCL 1% 20 ML VIAL ONE (06:58)
[2017-03-13] MEDS ORDERED: BUPIVACAINE 0.5 % 5 MG/1 ML MPF 30ML VIAL ONE (06:58)
[2017-03-13] MEDS ORDERED: BACITRACIN OINT 15 GM TUBE ONE (06:59)
[2017-03-13] MEDS ORDERED: CLINDAMYCIN 600 MG/54 ML D5W IV SCH (07:30)
[2017-03-13] MEDS ORDERED: PHENYLEPHRINE HCL INJ 10 MG/ML VIAL ONE (07:41)
[2017-03-13] MEDS ORDERED: EpHEDrine SULFATE INJ 50 MG/ML AMP IV PRN (07:45)
[2017-03-13] MEDS ORDERED: HYDROmorphone INJ 2 MG/ML SYR/VIAL IV PRN (07:45)
[2017-03-13] MEDS ORDERED: FENTANYL CITRATE INJ 50 MCG/1 ML 2 ML VIAL IV PRN (07:45)
[2017-03-13] MEDS ORDERED: PHENYLEPHRINE 100MCG/ML 5ML SYR IV PRN (07:45)
[2017-03-13] MEDS ORDERED: LABETALOL HCL IV 5 MG/ML 20ML IV PRN (07:45)
[2017-03-13] MEDS ORDERED: MEPERIDINE HCL 25 MG/ML CARP IV PRN (07:45)
[2017-03-13] MEDS ORDERED: FLUMAZENIL 0.1 MG/1 ML 10 ML VIAL IV PRN (07:45)
[2017-03-13] MEDS ORDERED: ONDANSETRON INJ 2 MG/ML 2 ML VIAL IV PRN ×2 (07:45→08:30)
[2017-03-13] MEDS ORDERED: ATROPINE SULFATE 0.1 MG/ML 5ML SYR IV PRN (07:45)
[2017-03-13] MEDS ORDERED: NALOXONE HCL 0.4 MG/1 ML VIAL/CARP IV PRN (07:45)
--- NOTE | 2017-03-13 08:22 | Discharge Instructions ---
Discharge Instructions Date of Service Mar 13, 2017. Admission Reason for Admission: Cecum Cancer Discharge Discharge Diagnosis / Problem: Colon cancer Discharge Goals Goal(s): Decrease discomfort Activity Recommendations Activity Limitations: as noted below No heavy lifting over 10 pounds with left arm for 1 week Do not raise left arm over head for 1 week No submerging incisions underwater for 2 weeks (no swimming, hot tubs) . Instructions / Follow-Up Instructions / Follow-Up Keep dressings on for 4 days and then remove. You may then shower. Sponge bath and wash hair in meantime keep steri strips on incision for 10 days and then remove, they may fall off before that is okay Follow-up with Dr. Weathers in 1 week, call office at [phone] if you do not already have an appointment Current Hospital Diet Patient's current hospital diet: Discharge Diet Recommended Diet: Regular Diet Procedures Procedures Performed: Infusaport insertion Pending Studies Studies pending at discharge: no Laboratory Results Hemoglobin A1c Test 02/03/17 05:13 Range/Units Estimated Average Glucose 160 mg/dl Hemoglobin A1c 7.2 H 4.5-5.6 % Medical Emergencies . Who to Call and When: Medical Emergencies: If at any time you feel your situation is an emergency, please call 911 immediately. . Non-Emergent Contact Non-Emergency issues call your: Primary Care Provider, Surgeon Call Non-Emergent contact if: you have a fever, temperature is above 101.5, your pain is not controlled, your pain is worsening, wound has increased drainage, wound has increased redness, wound has increased pain . "Provider Documentation" section prepared by Leonor Garner. . VTE Core Measure Inpt VTE Proph given/why not?: SCD's
[2017-03-13] MEDS ORDERED: MoRPHine SULFATE 2 MG/ML CARP IV PRN (08:30)
[2017-03-13] MEDS ORDERED: ACETAMINOPHEN 325 MG TAB PO PRN (08:30)
--- NOTE | 2017-03-13 08:40 | [facility] Post Operative Brief Note ---
Immediate Operative Summary Operative Date Mar 13, 2017. Pre-Operative Diagnosis Colon Cancer Post-Operative Diagnosis Colon cancer Procedure(s) Performed Infusaport insertion on left internal jugular vein Surgeon Weathers Senior Procurement Manager Surgeon(s) Leonor Garner PA-C Estimated Blood Loss 10cc Findings patent left internal jugular vein Specimens None per surgeon Drains none Anesthesia sedation + local Complication(s) None Disposition Recovery Room / PACU
--- NOTE | 2017-03-13 08:46 | DIAGNOSTIC IMAGING REPORT ---
CHEST ONE VIEW PORTABLE HISTORY:67 yearsFemales/p left IJ aport insertion COMPARISON: None available. TECHNIQUE: Portable upright AP view of the chest. FINDINGS: Left sided [place]-q-Wozi catheter is present with alignment appearing slightly more medial than expected. This is likely secondary to patient rotation. There is no postprocedural pneumothorax. Cardiac silhouette is within normal limits. No focal airspace consolidation or pleural effusion. IMPRESSION: Status post placement of a left sided Gvykwo-l-Aflw catheter with line slightly more medial than expected. This is likely secondary to underlying patient rotation. Consider Follow-up exam with improved patient positioning for confirmation. The above report was generated using voice recognition software. It may contain grammatical, syntax or spelling errors. Electronically signed by: Neel Naranjo 03/13/2017 8:45 AM Dictated Date/Time: 03/13/2017 8:42 AM
--- NOTE | 2017-03-13 08:57 | Anesthesiology Progress Note ---
Anesthesia Post Op Note Date & Time Mar 13, 2017 at 08:57 Vital Signs Pain Intensity: 0 Vital Signs Past 12 Hours Date Time Temp Pulse Resp B/P (MAP) Pulse Ox O2 Delivery O2 Flow Rate FiO2 03/13/17 08:45 63 16 128/74 94 Room Air 03/13/17 08:35 36.4 61 16 118/83 96 Room Air 03/13/17 08:25 69 16 131/81 95 Room Air 03/13/17 08:17 36.8 72 16 123/68 93 Room Air 03/13/17 05:53 36.7 80 20 173/86 (115) 98 Room Air Notes Mental Status: alert / awake / arousable, participated in evaluation Pt Amnestic to Procedure: Yes Nausea / Vomiting: adequately controlled Pain: adequately controlled Airway Patency, RR, SpO2: stable & adequate BP & HR: stable & adequate Hydration State: stable & adequate Anesthetic Complications: no major complications apparent
--- NOTE | 2017-03-13 09:02 | [facility] Operative Report ---
Operative Report Operative Date Mar 13, 2017. Pre-Operative Diagnosis Colon Cancer Post-Operative Diagnosis Colon cancer Procedure(s) Performed Infusaport insertion on left internal jugular vein Surgeon Jasiel Video Game Programmer Surgeon(s) Leonor Garner PA-C Estimated Blood Loss 10cc Findings patent left internal jugular vein Specimens None per surgeon Drains none Anesthesia sedation + local Complication(s) None Disposition Recovery Room / PACU Indications Patient is a 67 years old female with diagnosis of colon cancer patient needs port catheter insertion for chemotherapy . I talked to patient about benefits, risks and alternatives of the procedure, The risks- may inclding but not limit such as bleeding, infection, blood clot, injury lung, dysfunction of catheter, patient understood, she signed consent, I answered all questions. Description of Procedure Referring patient walked with the patient is superior position on the OR table , patient received SCD the bilateral legs to prevent DVT, patient received 900 mg clindamycin for IV for pre-op antibiotic. patient received sedation by his anesthesiology. the patient's left neck and upper chest was appropriate firm region sterilization, after a timeout injections of local anesthesia using 1% lidocaine mixed 0.5% Marcaine left-sided neck small incision and also use ultrasound to locate the left internal jugular vein use a 16-gauge needle punctures internal jugular vein without difficulty, and passing the wire over needle, removal was a needle use of Jessenia coliforms were tip of catheter located SVC, then I creat a porch on left upper chest, passed the catheter from left upper chest to the neck, passed sheld over wire, removed the wire, then passed catheter over sheld. using jessenia to located eliu tip of cather is on SVC, sizing eliu catheter, connect the port, , then I using 2-0 prolene to fix the port on chest wall, X 3, close subcutanous layer by using 2-0 vercry, close skin by using 4-0 vercry, put the dressing on, all instructment needle spoze count corect time 2, patient tolerated the procedure well, I attest to the content of the Intraoperative Record and any orders documented therein. Any exceptions are noted below.
[2017-03-13 09:05] VITALS: BP 135/71; PULSE 61; TEMP 36.9; O2SAT 97
[2017-03-13 09:40] VITALS: BP 157/96; PULSE 73; O2SAT 96
== END 2017-03-13 10:05 | disposition home or self-care (01) ==
LOC: C.ACU 05:28
PROVIDERS: ATTEND Surgery
DX: C18.9 Malignant neoplasm of colon, unspecified (principal); C77.9 Secondary and unspecified malignant neoplasm of lymph node, unspecified; Z90.49 Acquired absence of other specified parts of digestive tract

== ENCOUNTER → 2017-05-24 | Outpatient (CLI) | payer OTHER ==
--- NOTE | 2017-05-24 15:17 | MAMMOGRAPHY REPORT ---
BILATERAL DIGITAL DIAGNOSTIC MAMMOGRAM TOMOSYNTHESIS WITH CAD AND TARGETED RIGHT ULTRASOUND: 7 CLINICAL HISTORY: 67-year-old woman presents with an area of palpable abnormality and focal pain in t he upper outer quadrant of the right breast. Also due for bilateral screening mammography. TECHNIQUE: Bilateral CC, MLO, XCCL and spot magnification left CC and ML views were obtained. Addit ional images were obtained due to skin folds and patient body habitus. Current study was also evalua bernarda with a Computer Aided Detection (CAD) system. COMPARISON: Comparison is made to exam dated: 11/20/2003 mammogram - [facility]. BREAST COMPOSITION: The tissue of both breasts is almost entirely fatty. FINDINGS: A square shaped pain marker overlies the upper outer posterior right breast, denoting an ar ea of focal pain pointed out by the patient. She was unable to definitively feel the palpable lump t christianne. There is no new suspicious mass, asymmetry, area of distortion or suspicious microcalcificatio ns in the area of concern within the right upper outer quadrant, or elsewhere throughout the remainde r of the visualized right breast. There is a stable intramammary lymph node in the right upper outer quadrant. Mild vascular calcification in the right breast. There are are mild vascular calcifications in the left breast. Possible microcalcifications in the c entral left breast were further evaluated with spot magnification views, which demonstrate an 11 mm c luster of amorphous microcalcifications in the central breast that were not present on the prior mamm ogram from 2003 and are therefore indeterminate. Definitive characterization with a stereotactic sendy ded biopsy is recommended. No other suspicious mass, asymmetry or area of distortion is seen in the left breast. IMPRESSION: ACR BI-RADS CATEGORY 4: SUSPICIOUS, TARGETED ULTRASOUND ACR BI-RADS CATEGORY 4: SUSPICIO US 1. There is no suspicious mammographic or targeted sonographic abnormality and an area of focal pain within the 9:00 to 10:00 right breast, approximately 25 cm from the nipple. The patient was unable to feel a definitive lump today. Clinical follow-up is still recommended, as biopsy of a clinically suspicious mass should not be precluded by negative imaging. 2. Left breast stereotactic guided biopsy is recommended for a new 11 mm cluster of amorphous microc alcifications in the central breast. These results and recommendations were discussed with the patient at the time of the exam. She tenta tively scheduled the left breast stereotactic biopsy prior to leaving our department. Approximately 10% of breast cancers are not detected with mammography. A negative mammographic report should not delay biopsy if a clinically suggestive mass is present. Marika Wright M.D. ay/:05/24/2017 13:27:18 Export Sales Assistant: Cookie Perez, [facility] letter sent: Abnormal 4/5 BI-RADS Code: ACR BI-RADS Category 4: Suspicious Ultrasound BI-RADS: ACR BI-RADS Category 4: Suspici ous
== END | disposition home or self-care (01) ==
LOC: C.MAMM 12:36
PROVIDERS: ATTEND Internal Medicine
DX: R92.2 Inconclusive mammogram (principal); N63 Unspecified lump in breast

== ENCOUNTER → 2017-06-12 | Outpatient (CLI) | payer OTHER ==
--- NOTE | 2017-06-12 13:16 | Discharge Instructions ---
Discharge Instructions Procedure Procedure Date: Jun 12, 2017. Reason for visit: Left Calcifications Adhesive Allergy. Discharge Discharge Date: Jun 12, 2017. Discharge Diagnosis: post left breast stereotactic guided biopsy Instructions Activity Recommendations: Additional Limitations (see below) Return to School/Work: no limitations Recommended Home Diet: No Limitations Provider Instructions: ACTIVITY RECOMMENDATIONS: * No lifting, pushing, pulling or exercising the affected side for three days. RETURN TO SCHOOL/WORK: * You may return to work/school after the procedure, but do not perform any strenuous activities for 24 to 48 hours. MEDICATIONS: * Tylenol (two 325 mg) every four to six hours if needed for mild pain (if not allergic to Tylenol). DIET: * Resume previous diet. SPECIAL CARE INSTRUCTIONS: * Keep biopsy site dry for 24 hours. May shower after 24 hours, but do not soak (bathe) incision. * May remove Tegaderm (plastic patch) tomorrow AFTER showering. * Leave the steri-strips on for one week. Allow the steri-strips to fall off by themselves. If not off after one week, you may remove them. You may place a Bandaid crosswise over the strips, if desired. * Apply ice 10 minutes on and 10 minutes off as needed. * Wear a bra at bedtime to sleep more comfortably for 2-3 days. * Your referring physician should have the results after approximately 5 to 7 business days. * Call for unusual bleeding, fever, drainage, etc or if you have any questions call [phone] during normal business hours or after hours call Dr Wright, . FOLLOW UP VISIT: Follow-up with Referring Physician as scheduled. Allergies Coded Allergies: Penicillins (Verified Allergy, Severe, ANAPHYLAXIS, 03/13/17) Adhesives (Verified Allergy, Intermediate, RASH, 03/13/17) Latex1 -Allergic Contact Dermititis (Verified Allergy, Intermediate, RASH , 03/13/17) Magnesium (Verified Allergy, Unknown, per records , 03/13/17) Zinc (Verified Allergy, Unknown, per records , 03/13/17) Oxycodone (Verified Adverse Reaction, Intermediate, "COULD CARE IF I LIVED OR ", 03/13/17) Beny David Recommendations: Call your doctor if: * Temperature above 101 degrees * Pain not relieved by pain medicine ordered * There is increased drainage or redness from any incision * You have any unanswered questions or concerns. Your Doctors Instructions noted above were prepared by provider Marika Wright. Patient Signature Section: Patient Instructions Signature Page Lacie Douglas Patient (or Guardian) Signature/Date: I have read and understand the instructions given to me by my caregivers. Caregiver/RN/Doctor Signature/Date: The above-named patient and/or guardian has received patient instructions on this date. + Original Patient Signature Page (only) stays with chart. Please make copy for patient.
--- NOTE | 2017-06-12 14:14 | MAMMOGRAPHY REPORT ---
STEREOTACTIC GUIDED BIOPSY LEFT BREAST: 06/12/2017 CLINICAL HISTORY: 67-year-old woman presents for stereotactic guided biopsy of clustered microcalcifi cations in the central left breast. COMPARISON: Comparison is made to exams dated: 05/24/2017 ultrasound, 05/24/2017 mammogram, and 004 mammogram - [facility]. PATIENT CONSENT: After explaining the risks, benefits and alternatives of the procedure to the patien t, informed consent was obtained both verbally and in writing. Specific risks include: Bleeding, inf ection, puncture of adjacent structure, pain, nontarget biopsy, sampling error, metal allergy and med ication reaction. PROCEDURE DESCRIPTION: A time-out was performed and the left breast was confirmed as the site of biop sy. The patient was placed prone on the stereotactic biopsy table and the breast was placed in CC fro m above compression. A maintenance mechanic 2nd shift image was obtained that demonstrated the clustered microcalcifications i n question. They are amenable to sterotactic biopsy. Then +15 and -15 stereo pair images were obta ined. The calcifications were targeted utilizing the coordinates obtained by the computer. The skin was prepped with Betadine. 1% Lidocaine with and without epinipherine was administered as local anest hesia. A small skin incision was made. Through the incision, the needle was inserted to the depth de termined by the computer. 6 samples were obtained using a [employer] [place] 9-gauge vacuum-assisted biopsy device. The specimen radiograph demonstrated a small grouping of indirect sales representative microcalcifications, therefore, a metallic marker was placed at the biopsy site. There was no immediate complication. Hemo stasis was achieved after several minutes of manual compression. The samples were sent to pathology in two appropriately labeled containers, "with calcifications" and "without calcifications". All of t he samples were obtained from the same single biopsy site. Postprocedure CC and ML views of the left breast were obtained. There is a new dumbbell-shaped metal lic biopsy marker and no significant hematoma in the central left breast, at the site of the biopsied clustered microcalcifications. Based on the postprocedure images, the calcifications are along the plane of the 11:30 to 12:00 axis. IMPRESSION: STEREOTACTIC GUIDED BIOPSY Status post stereotactic guided biopsy of clustered microcalcifications in the 11:30 to 12:00/central left breast, with biopsy marker placed at the site. The patient will receive notification of the biopsy results from her referring physician. Marika Wright M.D. ay/:06/12/2017 13:38:14 Attending Technologist: Akash FOSTER)(Myesha), [facility] Contact Lens Cutter: Cookie Perez, [facility]
--- NOTE | 2017-06-12 14:16 | MAMMOGRAPHY REPORT ---
UNILATERAL LEFT DIGITAL DIAGNOSTIC MAMMOGRAM: 06/12/2017 CLINICAL HISTORY: Status post left breast stereotactic guided biopsy of clustered amorphous microcalc ifications in the central breast. Please refer to the report from left breast stereotactic biopsy performed at the same time for full d etail. IMPRESSION: POST PROCEDURE IMAGING FOR MARKER PLACEMENT Please refer to the report from left breast stereotactic biopsy performed at the same time for full d etail. Approximately 10% of breast cancers are not detected with mammography. A negative mammographic report should not delay biopsy if a clinically suggestive mass is present. Marika Wright M.D. ay/:06/12/2017 13:15:41 Test Automation Architect: Cookie Perez, [facility] BI-RADS Code: Post Procedure Imaging For Marker Placement
== END | disposition home or self-care (01) ==
LOC: C.MAMM 12:26
PROVIDERS: ATTEND Internal Medicine
DX: R92.0 Mammographic microcalcification found on diagnostic imaging of breast (principal); D24.2 Benign neoplasm of left breast

== ENCOUNTER → 2017-10-02 | Outpatient (CLI) | payer OTHER ==
[2017-10-02 12:21] LABS: BASO % 0.6 %; BASO ABS # 0.04 K/uL (0-0.2); EOS % 1.1 %; EOS ABS # 0.07 K/uL (0-0.5); HEMATOCRIT 34.5 % (37-47); HEMOGLOBIN 11.3 g/dL (12.0-16.0); IG# 0.02 K/uL (0.00-0.02); LYMPH % 32.5 %; LYMPH ABS # 2.02 K/uL (1.2-3.4); MEAN CELL VOLUME 94.3 fL (80-100); MEAN CORPUSCULAR HEMOGLOBIN 30.9 pg (25-34); MEAN CORPUSCULAR HGB CONC 32.8 g/dl (32-36); MEAN PLATELET VOLUME 11.1 fL (7.4-10.4); MONO % 7.4 %; MONO ABS # 0.46 K/uL (0.11-0.59); NEUT % 58.1 %; PLATELET COUNT 213 K/uL (130-400); RED CELL DISTRIBUTION WIDTH CV 14.6 % (11.5-14.5); RED CELL DISTRIBUTION WIDTH SD 50.2 fL (36.4-46.3); WHITE BLOOD COUNT 6.21 K/uL (4.8-10.8)
[2017-10-02 12:29] LABS: HEMOGLOBIN A1C 6.4 % (4.5-5.6)
[2017-10-02 12:53] LABS: ALBUMIN 3.5 gm/dl (3.4-5.0); ALT/SGPT 21 U/L (12-78); AST/SGOT 21 U/L (15-37); BLOOD UREA NITROGEN 11 mg/dl (7-18); CALCIUM 9.1 mg/dl (8.5-10.1); CARBON DIOXIDE 26 mmol/L (21-32); CREATININE 0.98 mg/dl (0.60-1.20); GLUCOSE 140 mg/dl (70-99); POTASSIUM 4.1 mmol/L (3.5-5.1); SODIUM 138 mmol/L (136-145)
[2017-10-02 13:04] LABS: ALKALINE PHOSPHATASE 108 U/L (45-117); CHOLESTEROL 158 mg/dl (0-200); LDL CHOLESTEROL CALCULATED 74 mg/dl; TOTAL PROTEIN 7.7 gm/dl (6.4-8.2)
== END | disposition home or self-care (01) ==
LOC: C.LABBFT 10:30
PROVIDERS: ATTEND Internal Medicine
DX: E03.9 Hypothyroidism, unspecified (principal); E11.65 Type 2 diabetes mellitus with hyperglycemia; R79.9 Abnormal finding of blood chemistry, unspecified

== ENCOUNTER → 2017-10-05 | Outpatient (CLI) | payer OTHER ==
[2017-10-05 18:07] LABS: CREATININE RANDOM URINE 36.7 mg/dl
== END | disposition home or self-care (01) ==
LOC: C.LABBFT 11:44
PROVIDERS: ATTEND Internal Medicine
DX: E11.65 Type 2 diabetes mellitus with hyperglycemia (principal)

== ENCOUNTER → 2017-11-08 | Outpatient (CLI) | payer OTHER ==
--- NOTE | 2017-11-08 08:39 | DIAGNOSTIC IMAGING REPORT ---
A-PORT CHECK CLINICAL HISTORY: COMPLICATION TO VASCULAR IMPLANT, COLON CA COMPARISON STUDY: No previous studies for comparison. FINDINGS: The patient's right internal jugular A-Port catheter was accessed by the radiology nurse. There is no blood return. 6 seconds of fluoroscopic time was utilized. 26 fluoroscopic spot images were acquired. 5 cc of Optiray 300 was instilled into the A-Port catheter. The catheter opacified, but no contrast was visualized exiting the tip of the catheter. There is extravasation of contrast, surrounding the catheter approximately 1 to 2 cm proximal to the vascular entry point. The findings indicate a hole within the catheter. IMPRESSION: 1. Extravasation of contrast was identified approximately 1 to 2 cm proximal to the vascular entry point. The findings indicate a catheter fracture/hole. 2. The catheter appears occluded at its tip. Electronically signed by: Rohit Bridges M.D. 11/08/2017 8:38 AM Dictated Date/Time: 11/08/2017 8:33 AM
[2017-11-08 09:36] LABS: BLOOD UREA NITROGEN 20 mg/dl (7-18)
== END | disposition home or self-care (01) ==
LOC: C.RAD 07:26
PROVIDERS: ATTEND Physician Assistant
DX: C18.0 Malignant neoplasm of cecum (principal); C77.2 Secondary and unspecified malignant neoplasm of intra-abdominal lymph nodes